=== PATIENT | male | born 1945 | race Caucasian/White ===

== ENCOUNTER 2017-01-01 21:14 | Inpatient (IN) | payer OTHER, MEDICARE ==
[2017-01-01] MEDS ORDERED: SODIUM CHLORIDE 0.9% 1000 ML INFUS.BAG IV STA (21:37)
--- NOTE | 2017-01-01 21:39 | PDOC ---
History of Present Illness <Fabian Sherman - Last Filed: 01/02/17 04:06> - General History Source: Patient Exam Limitations: No Limitations - History of Present Illness Initial Comments: 01/01/17 22:11 The patient is a 71 year old male with a significant past medical history of HTN , A-fib (now resolved, no longer taking coumadin) s/p kidney transplant who presents to the ED with complaints of fever since early this morning.Patient had a right sided kidney transplant on September 30 2016 at [facility]. He states he has had no complaints since the surgery. Patient reports a sudden onset of shaking last night. He reports he developed a subjective fever in the morning. Patient also reports urinary frequency since 2am this morning. He states he has to urinate every several minutes. Denies abdominal pain, nausea, vomiting, or diarrhea. Denies dysuria, hematuria , or hesitancy. Denies chest pain or shortness of breath. Denies any other symptoms. Kidney Transplant Doctor: Dr. Dominique Iyer (At [facility] ) PMD: Dr. Hamilton <Philip Courtney - Last Filed: 01/02/17 04:11> - General Chief Complaint: SIRS, Suspected/Possible Stated Complaint: SHAKING Time Seen by Provider: 01/01/17 21:37 Past History - Past Medical History Anemia: Yes Asthma: No Cancer: No Cardiac Disorders: Yes (2 stents, A.FLUTTER S/P ABLATION; CAD) CVA: No COPD: No CHF: Yes Dementia: No Diabetes: Yes Dialysis: No (hx of h.dialysis) GI Disorders: No Disorders: No HTN: Yes Hypercholesterolemia: Yes Liver Disease: No Suicide Attempt (Hx): No Seizures: No Thyroid Disease: No Other medical history: rt arm fistula - Surgical History Abdominal Surgery: Yes (hernia repair X2,colon resection) Appendectomy: No Cardiac Surgery: Yes (ablation, STENTS x 2, cath 10/08 no intervention) Cholecystectomy: No GI Surgery: Yes (colon sx 2 pre-ca tumors. 6 inches removed 05/2013) Lung Surgery: No Neurologic Surgery: No Orthopedic Surgery: Yes (R. grt toe amputation) - Immunization History Td Vaccination: Yes Immunization Up to Date: Yes (flu and pna 2013) - Psycho/Social/Smoking Cessation Hx Anxiety: No Suicidal Ideation: No Smoking Status: No Smoking History: Never smoked Years of Tobacco Use: 0 Have you smoked in the past 12 months: No Number of Cigarettes Smoked Daily: 0 If you are a former smoker, when did you quit?: 1996 Cigars Per Day: 0 Information on smoking cessation initiated: No 'Breaking Loose' booklet given: 03/05/15 Hx Alcohol Use: No Drug/Substance Use Hx: No Substance Use Type: None Hx Substance Use Treatment: No <Fabian Sherman - Last Filed: 01/02/17 04:06> <Philip Courtney - Last Filed: 01/02/17 04:11> - Past Medical History Allergies/Adverse Reactions: Allergies Allergy/AdvReac Type Severity Reaction Status Date / Time No Known Drug Allergies Allergy Verified 01/01/17 21:21 Home Medications: Ambulatory Orders Acyclovir [Zovirax -] 400 mg PO BID 01/01/17 Amlodipine Besylate [Norvasc -] 5 mg PO DAILY 01/01/17 Aspirin [ASA -] 81 mg PO DAILY 01/01/17 Atorvastatin Ca [Lipitor] 40 mg PO HS 01/01/17 Atovaquone [Mepron -] 750 mg PO BID 01/01/17 Calcium 600 + Vit D Softgel 600 mg PO DAILY 01/01/17 Cholecalciferol (Vitamin D3) [Vitamin D3 -] 1,000 unit PO DAILY 01/01/17 Docusate Sodium [Colace -] 100 mg PO DAILY 01/01/17 Fenofibric Acid [Trilipix -] 45 mg PO DAILY 01/01/17 Ferrous Sulfate 325 mg PO DAILY 01/01/17 Isosorbide Dinitrate [Isordil -] 10 mg PO DAILY 01/01/17 Losartan Potassium 25 mg PO DAILY 01/01/17 Metoprolol Succinate [Toprol Xl] 100 mg PO DAILY 01/01/17 Mycophenolate Mofetil [Cellcept] 500 mg PO DAILY 01/01/17 Prednisone 5 mg PO DAILY 01/01/17 Tacrolimus [Prograf] 1 tab PO DAILY 01/01/17 Review of Systems - Review of Systems Able to Perform ROS?: Yes Comments:: 01/01/17 22:12 GENERAL/CONSTITUTIONAL:+ fever, shakes No weakness. HEAD, EYES, EARS, NOSE AND THROAT: No change in vision. No ear pain or discharge. No sore throat. CARDIOVASCULAR: No chest pain or shortness of breath. RESPIRATORY: No cough, wheezing, or hemoptysis. GASTROINTESTINAL: No nausea, vomiting, diarrhea or constipation. GENITOURINARY: + frequency. No dysuria. MUSCULOSKELETAL: No joint or muscle swelling or pain. No neck or back pain. SKIN: No rash NEUROLOGIC: No headache, vertigo, loss of consciousness, or change in strength/ sensation. ENDOCRINE: No increased thirst. No abnormal weight change. HEMATOLOGIC/LYMPHATIC: No anemia, easy bleeding, or history of blood clots. ALLERGIC/IMMUNOLOGIC: No hives or skin allergy. All Other Systems: Reviewed and Negative <Philip Courtney - Last Filed: 01/02/17 04:11> *Physical Exam - Vital Signs Last Vital Signs Temp Pulse Resp BP Pulse Ox 103.1 F H 90 18 143/63 100 01/01/17 21:23 01/01/17 21:23 01/01/17 21:23 01/01/17 21:23 01/01/17 21:23 <Fabian Sherman - Last Filed: 01/02/17 04:06> - Vital Signs Last Vital Signs Temp Pulse Resp BP Pulse Ox 103.1 F H 90 18 143/63 100 01/01/17 21:23 01/01/17 21:23 01/01/17 21:23 01/01/17 21:23 01/01/17 21:23 - Physical Exam Comments: 01/01/17 22:12 GENERAL: + febrile, does not look ill. Awake, alert, and fully oriented, in no acute distress HEAD: No signs of trauma EYES: PERRLA, EOMI, sclera anicteric, conjunctiva clear ENT: Auricles normal inspection, hearing grossly normal, nares patent, oropharynx clear without exudates. Moist mucosa NECK: Normal ROM, supple, no lymphadenopathy, JVD, or masses LUNGS: Breath sounds equal, clear to auscultation bilaterally. No wheezes, and no crackles HEART: Regular rate and rhythm, normal S1 and S2, no murmurs, rubs or gallops ABDOMEN: Soft, nontender, normoactive bowel sounds. No guarding, no rebound. No masses EXTREMITIES: Normal range of motion, no edema. No clubbing or cyanosis. No cords, erythema, or tenderness NEUROLOGICAL: Normal speech SKIN: Warm, Dry, normal turgor, no rashes or lesions noted. <Philip Courtney - Last Filed: 01/02/17 04:11> Heart Score/ECG Review #1 01/02/17 00:19 Normal sinus rhythm Normal ECG Vent rate 91 bpm AL interval 152 ms Normal axes Reviewed and Interpreted by: Dr. Sherman <Philip Courtney - Last Filed: 01/02/17 04:11> ED Treatment Course - LABORATORY CBC & Chemistry Diagram: 01/01/17 22:00 01/01/17 22:00 - RADIOLOGY Radiology Studies Ordered: Category Date Time Status CHEST X-RAY PORTABLE* [RAD] Stat Radiology 01/01/17 21:37 Ordered <Fabian Sherman - Last Filed: 01/02/17 04:06> - LABORATORY CBC & Chemistry Diagram: 01/01/17 22:00 01/01/17 22:00 <Philip Courtney - Last Filed: 01/02/17 04:11> Medical Decision Making - Medical Decision Making 01/02/17 03:09 We are not able to get in contact with transplant team to pick out meds and antibiotics. Because time is of the essence,1 dose of zosan will be given and will wait for transplant team to pick meds and antibiotics 01/02/17 04:11 Multiple attempts were made over an hour to get in contact with the patients transplant team at [facility]. Case discussed with Dr. Iyer and she wants the patient to be admitted under his PMD. Dr Hamilton was paged and she was on vacation. Case discussed with Dr. Narvaez. Patient will be admitted through the hospitalist service. <Philip Courtney - Last Filed: 01/02/17 04:11> *DC/Admit/Observation/Transfer - Discharge Dispostion Admit: Yes - Attestations Physician Attestion: 01/01/17 21:39 I, Dr. Fabian Sherman, attest that this document has been prepared under my direction and personally reviewed by me in its entirety. I further attest, that it accurately reflects all work, treatment, procedures and medical decision -making performed by me. <Fabian Sherman - Last Filed: 01/02/17 04:06> - Attestations Scribe Attestion: 01/01/17 22:12 Documentation prepared by Philip Courtney, acting as diploma medical assistant for Fabian Sherman MD <Philip Courtney - Last Filed: 01/02/17 04:11> Diagnosis at time of Disposition: Acquired immunocompromised state, IDDM (insulin dependent diabetes mellitus), H /O heart artery stent, Kidney transplant recipient Sepsis Qualifiers: Sepsis type: sepsis due to unspecified organism Qualified Code(s): A41.9 - Sepsis, unspecified organism Hypertension Qualifiers: Hypertension type: essential hypertension Qualified Code(s): I10 - Essential ( primary) hypertension
[2017-01-01 22:11] LABS: MCH 28.6 pg (25.7-33.7); MCHC 32.2 g/dl (32.0-35.9); MEAN CELL VOLUME 88.9 fl (80-96); MEAN PLT VOLUME 11.1 fl (7.5-11.1); PLATELET COUNT 94 K/MM3 (134-434); WHITE BLOOD COUNT 7.4 K/mm3 (4.0-10.0)
[2017-01-01] MEDS ORDERED: ACETAMINOPHEN INJECTION 100 ML IVPB ONE (22:23)
[2017-01-01 22:26] LABS: INR 1.12 (0.82-1.09); PROTHROMBIN TIME (PATIENT) 12.3 SEC (9.98-11.88)
[2017-01-01] MEDS ORDERED: ACETAMINOPHEN 1000 MG/100 ML VIAL (NON FORMULARY) IVPB ONE (22:29)
[2017-01-01 22:31] LABS: VENOUS BLOOD GAS HCO3 21.2 meq/L (19-25); VENOUS PH 7.45 (7.32-7.42)
[2017-01-01 22:42] LABS: ALBUMIN 3.6 g/dl (3.4-5.0); ANION GAP 8 (8-16); CALCIUM 8.6 mg/dL (8.5-10.1); CO2 23 mmol/L (21-32); GLUCOSE,RANDOM 209 mg/dL (74-106)
[2017-01-01 22:48] LABS: ALK PHOS 48 U/L (45-117); BILIRUBIN,TOTAL 0.4 mg/dL (0.2-1.0); SGOT/AST 15 U/L (15-37); SGPT/ALT 21 U/L (12-78); TOT PROT 6.5 g/dl (6.4-8.2); TROPONIN I < 0.02 ng/ml (0.00-0.05)
[2017-01-01 23:08] LABS: ANISOCYTOSIS OCC; PLATELET ESTIMATE MOD DECREASED (NORMAL)
[2017-01-02 01:51] LABS: URINE APPEARANCE CLOUDY; URINE BILIRUBIN NEGATIVE (NEGATIVE); URINE COLOR LTYELLOW; URINE GLUCOSE (UA) NEGATIVE (NEGATIVE); URINE KETONE NEGATIVE (NEGATIVE); URINE NITRITE POSITIVE (NEGATIVE); URINE UROBILINOGEN NEGATIVE E.U./dl (0.2-1.0)
[2017-01-02 01:55] LABS: URINE BLOOD 3+ (NEGATIVE); URINE LEUK ESTERASE 2+ (NEGATIVE); URINE PROTEIN 2+ (NEGATIVE)
[2017-01-02 01:59] LABS: URINE BACTERIA MANY /hpf (NONE SEEN); URINE RBC 6 /hpf (0-3); URINE WBC 333 /hpf (3-5)
[2017-01-02] MEDS ORDERED: PIPERACILLIN/TAZOB 3.375 GM/50 ML PRE-DOCKED IV ONE (03:07)
[2017-01-02] MEDS ORDERED: PIPERACILLIN/TAZOB 3.375 GM 50 ML IVPB ONE (03:14)
[2017-01-02] MEDS ORDERED: ACETAMINOPHEN 1000 MG/100 ML VIAL (NON FORMULARY) IVPB ONE ×2 (03:16→06:12)
[2017-01-02] MEDS ORDERED: ACETAMINOPHEN INJECTION 100 ML IVPB ONE (03:26)
--- NOTE | 2017-01-02 05:10 | PN ---
Teaching Attending Note Name of Resident: Abel King ATTENDING PHYSICIAN STATEMENT I saw and evaluated the patient. Chart, imaging, and date reviewed. I reviewed the resident's note and discussed the case with the resident. I agree with the resident's findings and plan as documented with modifications in the attending note below. SUBJECTIVE: 71 year old male with a significant past medical history of HTN, A-fib (now resolved, no longer taking coumadin), CAD s/p 2 stents, ablation, s/p kidney transplant presented with complaints of fever and chills x 1 day. Patient had a right sided kidney transplant on September 30 2016 at [facility]. He states he has had no complaints since the surgery. Patient reports urinary frequency since 2am this morning. He states he has to urinate every several minutes, some discomfort with urination and reported subjective change in urine smell and color. Pt otherwise reports compliance with his home medications and and reports compliance with his follow up appointments at [facility]. Denies abdominal pain, nausea, vomiting, or diarrhea, hematuria, or hesitancy. Denies chest pain or shortness of breath. Pt admitted for Dr. Hamilton as she is not available for admission. Kidney Transplant Doctor: Dr. Dominique Iyer (At [facility] ) OBJECTIVE: Last Vital Signs Temp Pulse Resp BP Pulse Ox 100.4 F H 92 H 17 172/75 96 01/02/17 03:20 01/02/17 03:20 01/02/17 03:20 01/02/17 03:20 01/02/17 03:20 Tmax- 103F GENERAL: + febrile Awake, alert, and fully oriented, appears comfortable, nontoxic HEAD: No signs of trauma, moist oral mucosa, moist oral mucosa EYES: PERRLA, EOMI, sclera anicteric, conjunctiva clear NECK: supple, no lymphadenopathy or masses LUNGS: Breath sounds equal, clear to auscultation bilaterally. No wheezes, and no crackles HEART: S1 and S2, RRR, no murmurs ABDOMEN: Soft, nontender, normoactive bowel sounds. No guarding, no rebound. No masses, no CVA tenderness NEUROLOGICAL: Normal speech, no focal deficits noted SKIN: scar on anterior right flank after transplant, appears well healed Laboratory Results - last 24 hr 01/01/17 01/01/17 01/01/17 22:00 22:00 22:00 WBC 7.4 D RBC 3.92 L Hgb 11.2 L D Hct 34.9 L MCV 88.9 MCHC 32.2 RDW 16.0 H Plt Count 94 L D MPV 11.1 Neutrophils % 90.0 H Lymphocytes % 7.0 L D Band Neutrophils 3.0 D Platelet Estimate Mod decreased Anisocytosis Occ INR 1.12 PTT (Actin FS) 24.0 L D VBG pH POC VBG pCO2 POC VBG pO2 Mixed VBG HCO3 Sodium 135 L Potassium 4.4 Chloride 104 Carbon Dioxide 23 D Anion Gap 8 BUN 37 H Creatinine 2.0 H D Creat Clearance w eGFR 33.29 Random Glucose 209 H Lactic Acid Calcium 8.6 Total Bilirubin 0.4 AST 15 D ALT 21 D Alkaline Phosphatase 48 Creatine Kinase 45 Troponin I < 0.02 Total Protein 6.5 Albumin 3.6 D Urine Color Urine Appearance Urine pH Urine Protein Urine Glucose (UA) Urine Ketones Urine Blood Urine Nitrite Urine Bilirubin Urine Urobilinogen Ur Leukocyte Esterase Urine RBC Urine WBC Ur Epithelial Cells Urine Bacteria Blood Type Antibody Screen 01/01/17 01/01/17 01/01/17 22:00 22:00 22:19 WBC RBC Hgb Hct MCV MCHC RDW Plt Count MPV Neutrophils % Lymphocytes % Band Neutrophils Platelet Estimate Anisocytosis INR PTT (Actin FS) VBG pH 7.45 H POC VBG pCO2 31.1 L POC VBG pO2 99.8 H Mixed VBG HCO3 21.2 Sodium Potassium Chloride Carbon Dioxide Anion Gap BUN Creatinine Creat Clearance w eGFR Random Glucose Lactic Acid 1.8 Calcium Total Bilirubin AST ALT Alkaline Phosphatase Creatine Kinase Troponin I Total Protein Albumin Urine Color Urine Appearance Urine pH Urine Protein Urine Glucose (UA) Urine Ketones Urine Blood Urine Nitrite Urine Bilirubin Urine Urobilinogen Ur Leukocyte Esterase Urine RBC Urine WBC Ur Epithelial Cells Urine Bacteria Blood Type A POSITIVE Antibody Screen Negative 01/02/17 01:40 WBC RBC Hgb Hct MCV MCHC RDW Plt Count MPV Neutrophils % Lymphocytes % Band Neutrophils Platelet Estimate Anisocytosis INR PTT (Actin FS) VBG pH POC VBG pCO2 POC VBG pO2 Mixed VBG HCO3 Sodium Potassium Chloride Carbon Dioxide Anion Gap BUN Creatinine Creat Clearance w eGFR Random Glucose Lactic Acid Calcium Total Bilirubin AST ALT Alkaline Phosphatase Creatine Kinase Troponin I Total Protein Albumin Urine Color Ltyellow Urine Appearance Cloudy Urine pH 5.0 D Urine Protein 2+ H Urine Glucose (UA) Negative Urine Ketones Negative Urine Blood 3+ H Urine Nitrite Positive Urine Bilirubin Negative Urine Urobilinogen Negative Ur Leukocyte Esterase 2+ H Urine RBC 6 Urine WBC 333 Ur Epithelial Cells Rare Urine Bacteria Many Blood Type Antibody Screen CXR -reviewed, no acute pathology noted ASSESSMENT AND PLAN: #71yo male, s/p right renal transplant 09/2016 presenting with clinical picture consistent with UTI. +Fever, chills and pyuria on UA. Clinical improvement after zosyn administration. SHould r/o hydronephrosis and and also evaluate for possible post op fluid collection in right flank. Calculated GFR is about 32. -admit to med/surg -send blood cultures x2 -urine culture -renal U/S to evaluate for abscess and hydronephrosis -continue pip/tazo - dose at 2.25g q6hrs, adjusted for GFR -ID consult for medication approval -f/u with [place] transplant physician about any additional work up- contact listed above -avoid nephrotoxic medications -Tylenol PRN for fevers #S/p right renal transplant- compliant with medication and follow up -restart home antirejection medications -f/u with transplant physician- Dr. Dominique Iyer, for any possible changes in immunosuppresive medication regimen #Other chronic medical problems - -continue home medications- refer to resident note for details -DVT ppx- low risk for DVT -heparin 5000units sc q12 hrs #diet -diabetic, low sodium, heart healthy diet
--- NOTE | 2017-01-02 05:20 | HP ---
CHIEF COMPLAINT: fevers and shaking PCP: Dr. Hamilton; Kidney Transplant Doctor: Dr. Dominique Iyer (At [place]: [phone]) HISTORY OF PRESENT ILLNESS: 71 y/o M w/PMH of HTN, DM, s/p renal transplant (09/2016), CHF, A-fib (off A/C, s /p ablation), CAD w/2 stents, Anemia presents to ER with shaking and fevers. Pt states last night at 2am he woke up with shaking and the feeling of needing to urinate every 10 min but unable to empty bladder. He states the shaking lasted for approximately 1 hour. This morning he forced himself to completely void and felt feverish in the AM. He noticed the urine has been foul smelling. He was in the supermarket at approximately 2pm today and he began shaking again and his drove him to the hospital. He also c/o generalized weakness and decreased appetite today. Pt had a renal transplant on 09/30/16 and since then has stated he has been compliant with all meds and follow up and no issues have been noted at these appointments. He denies any dysuria, blood in urine, N/V, diarrhea, sick contacts, recent travel, CP, SOB, facial pressure, abdominal pain. ER course was notable for: (1) Zosyn, BCx, UCx, CXR, NS (2) (3) Recent Travel: denies PAST MEDICAL HISTORY:HTN, IDDM, s/p renal transplant (09/2016), CHF, A-fib (off A /C, s/p ablation), CAD w/2 stents, Anemia PAST SURGICAL HISTORY: s/p 2 stents, renal transplant 09/2016, cardiac ablation, colon resection, R great toe amputation. Social History: Smoking: quit in 1987 Alcohol:denies Drugs: denies Family History: denies family history Allergies No Known Drug Allergies Allergy (Verified 01/01/17 21:21) HOME MEDICATIONS: Home Medications Medication Instructions Recorded Acyclovir [Zovirax -] 400 mg PO BID 01/01/17 Amlodipine Besylate [Norvasc -] 5 mg PO DAILY 01/01/17 Aspirin [ASA -] 81 mg PO DAILY 01/01/17 Atorvastatin Ca [Lipitor] 40 mg PO HS 01/01/17 Atovaquone [Mepron -] 750 mg PO BID 01/01/17 Calcium 600 + Vit D Softgel 600 mg PO DAILY 01/01/17 Cholecalciferol (Vitamin D3) 1,000 unit PO DAILY 01/01/17 [Vitamin D3 -] Docusate Sodium [Colace -] 100 mg PO DAILY 01/01/17 Fenofibric Acid [Trilipix -] 45 mg PO DAILY 01/01/17 Ferrous Sulfate 325 mg PO DAILY 01/01/17 Isosorbide Dinitrate [Isordil -] 10 mg PO DAILY 01/01/17 Losartan Potassium 25 mg PO DAILY 01/01/17 Metoprolol Succinate [Toprol Xl] 100 mg PO DAILY 01/01/17 Mycophenolate Mofetil [Cellcept] 500 mg PO DAILY 01/01/17 Prednisone 5 mg PO DAILY 01/01/17 Tacrolimus [Prograf] 1 tab PO DAILY 01/01/17 REVIEW OF SYSTEMS CONSTITUTIONAL: +fever, generalized weakness, loss of appetite. Absent: chills, diaphoresis, weight change HEENT: Absent: rhinorrhea, visual changes CARDIOVASCULAR: Absent: chest pain, lightheadedness, peripheral edema RESPIRATORY: Absent: cough, shortness of breath GASTROINTESTINAL: Absent: abdominal pain, nausea, vomiting, diarrhea, hematochezia GENITOURINARY: +frequency Absent: dysuria, hematuria, flank pain MUSCULOSKELETAL: Absent: myalgia, arthralgia SKIN: Absent: rash NEUROLOGIC: Absent: headache, focal weakness PHYSICAL EXAMINATION Vital Signs - 24 hr 01/01/17 01/01/17 01/02/17 21:23 23:30 00:15 Temperature 103.1 F H 101.2 F H 99.1 F Pulse Rate 90 Pulse Rate [ 88 Radial] Respiratory 18 17 Rate Blood Pressure 143/63 Blood Pressure 134/58 [Left Arm] O2 Sat by Pulse 100 97 Oximetry (%) 01/02/17 03:20 Temperature 100.4 F H Pulse Rate Pulse Rate [ 92 H Radial] Respiratory 17 Rate Blood Pressure Blood Pressure 172/75 [Left Arm] O2 Sat by Pulse 96 Oximetry (%) GENERAL: Awake, alert, and fully oriented, in no acute distress. HEAD: Normal with no signs of trauma. EYES: extraocular movements intact, sclera anicteric, conjunctiva clear. No lid lag. EARS, NOSE, THROAT: Ears normal, nares patent, oropharynx clear without exudates. NECK: Normal range of motion, supple without lymphadenopathy LUNGS: +decreased breath sounds at R base. No wheezes, and no crackles. No accessory muscle use. HEART: Regular rate and rhythm, normal S1 and S2 ABDOMEN: +RLQ surigcal scar, well healed; Soft, nontender, not distended, normoactive bowel sounds, no guarding, no rebound, no masses. No hepatomegaly or splenomegaly. MUSCULOSKELETAL: No CVA tenderness. LOWER EXTREMITIES: 2+ pulses, warm, well-perfused. No calf tenderness. No peripheral edema. NEUROLOGICAL: Normal speech. Gait not observed. PSYCHIATRIC: Cooperative. Good eye contact. Appropriate mood and affect. SKIN: Warm, dry, no rashes or lesions noted. Laboratory Results - last 24 hr 01/01/17 01/01/17 01/01/17 22:00 22:00 22:00 WBC 7.4 D RBC 3.92 L Hgb 11.2 L D Hct 34.9 L MCV 88.9 MCHC 32.2 RDW 16.0 H Plt Count 94 L D MPV 11.1 Neutrophils % 90.0 H Lymphocytes % 7.0 L D Band Neutrophils 3.0 D Platelet Estimate Mod decreased Anisocytosis Occ INR 1.12 PTT (Actin FS) 24.0 L D VBG pH POC VBG pCO2 POC VBG pO2 Mixed VBG HCO3 Sodium 135 L Potassium 4.4 Chloride 104 Carbon Dioxide 23 D Anion Gap 8 BUN 37 H Creatinine 2.0 H D Creat Clearance w eGFR 33.29 Random Glucose 209 H Lactic Acid Calcium 8.6 Total Bilirubin 0.4 AST 15 D ALT 21 D Alkaline Phosphatase 48 Creatine Kinase 45 Troponin I < 0.02 Total Protein 6.5 Albumin 3.6 D Urine Color Urine Appearance Urine pH Urine Protein Urine Glucose (UA) Urine Ketones Urine Blood Urine Nitrite Urine Bilirubin Urine Urobilinogen Ur Leukocyte Esterase Urine RBC Urine WBC Ur Epithelial Cells Urine Bacteria Blood Type Antibody Screen 01/01/17 01/01/17 01/01/17 22:00 22:00 22:19 WBC RBC Hgb Hct MCV MCHC RDW Plt Count MPV Neutrophils % Lymphocytes % Band Neutrophils Platelet Estimate Anisocytosis INR PTT (Actin FS) VBG pH 7.45 H POC VBG pCO2 31.1 L POC VBG pO2 99.8 H Mixed VBG HCO3 21.2 Sodium Potassium Chloride Carbon Dioxide Anion Gap BUN Creatinine Creat Clearance w eGFR Random Glucose Lactic Acid 1.8 Calcium Total Bilirubin AST ALT Alkaline Phosphatase Creatine Kinase Troponin I Total Protein Albumin Urine Color Urine Appearance Urine pH Urine Protein Urine Glucose (UA) Urine Ketones Urine Blood Urine Nitrite Urine Bilirubin Urine Urobilinogen Ur Leukocyte Esterase Urine RBC Urine WBC Ur Epithelial Cells Urine Bacteria Blood Type A POSITIVE Antibody Screen Negative 01/02/17 01:40 WBC RBC Hgb Hct MCV MCHC RDW Plt Count MPV Neutrophils % Lymphocytes % Band Neutrophils Platelet Estimate Anisocytosis INR PTT (Actin FS) VBG pH POC VBG pCO2 POC VBG pO2 Mixed VBG HCO3 Sodium Potassium Chloride Carbon Dioxide Anion Gap BUN Creatinine Creat Clearance w eGFR Random Glucose Lactic Acid Calcium Total Bilirubin AST ALT Alkaline Phosphatase Creatine Kinase Troponin I Total Protein Albumin Urine Color Ltyellow Urine Appearance Cloudy Urine pH 5.0 D Urine Protein 2+ H Urine Glucose (UA) Negative Urine Ketones Negative Urine Blood 3+ H Urine Nitrite Positive Urine Bilirubin Negative Urine Urobilinogen Negative Ur Leukocyte Esterase 2+ H Urine RBC 6 Urine WBC 333 Ur Epithelial Cells Rare Urine Bacteria Many Blood Type Antibody Screen Imaging: CXR: R angle blunted, no infiltrates noted, pending official report Active Medications Acetaminophen (Tylenol -) 650 mg PO Q6H PRN PRN Reason: FEVER OR PAIN Acyclovir (Zovirax -) 400 mg PO BID [facility] Amlodipine Besylate (Norvasc -) 5 mg PO DAILY [facility] Aspirin (Asa -) 81 mg PO DAILY [facility] Atorvastatin Calcium (Lipitor -) 40 mg PO HS [facility] Fenofibric Acid (Trilipix -) 45 mg PO DAILY [facility] Piperacillin Sod/Tazobactam (Sod 2.25 gm/ Dextrose) 50 mls @ 100 mls/hr IVPB ONCE ONE PRN Reason: Protocol Stop: 01/02/17 09:29 Sodium Chloride (Normal Saline -) 1,000 mls @ 100 mls/hr IV ASDIR [facility] Isosorbide Dinitrate (Isordil -) 10 mg PO DAILY [facility] Metoprolol Succinate (Toprol Xl -) 100 mg PO DAILY [facility] Mycophenolate Mofetil (Cellcept -) 500 mg PO DAILY [facility] Non-Formulary Medication (Atovaquone) 750 mg PO BID [facility] Non-Formulary Medication (Ferrous Sulfate [Ferrous Sulfate]) 325 mg PO DAILY [facility] Non-Formulary Medication (Tacrolimus [Prograf]) 1 tab PO DAILY [facility] Prednisone (Deltasone -) 5 mg PO DAILY [facility] ASSESSMENT/PLAN: 71 y/o M w/PMH of HTN, IDDM, s/p renal transplant (09/2016), CHF, A-fib (off A/C , s/p ablation), CAD w/2 stents, Anemia presents to ER with shaking and fevers. Found to have UTI as per UA. -Complicated UTI / pyelonephritis -ER team contacted Dr. Dominique Iyer (At [facility]: ) who is pt's transplant doctor who recommends single abx coverage with zosyn -Dr. Iyer also recommends trying to bring Cr down to 1.7 - 1.8 -Will dose zosyn according to CrCl at 2.25 g q6h; if pseudomonas is causative organism will need to increase dose -Recontact Dr. Iyer to check for any changes in management -NS @ 100 ml/hr -tylenol 650 mg po q6h prn for fevers -ID consulted (Dr. Kim) -trend lactic acid -f/u BCx, UCx -Renal U/S to r/o abscess -s/p Renal Transplant -c/w Acyclovir 400 mg po bid, mycophenolate mofetil 500 mg po qd, tacrolimus 1 tab po qd, prednisone 5 mg po qd, atovaquone 750 mg po bid -CAD -c/w asa 81 mg po qd, fenofibric acid 45 mg po qd, atorvastatin 40 mg po qhs -HTN -c/w toprol xl 100 mg po qd, amlodipine 5 mg po qd -held losartan at this time while we try to bring back Cr to 1.7 - 1.8 range -if losartan is restarted, include directions to hold if sBP is less than 120. -Anemia -Hgb 11.2, at baseline -c/w ferrous sulfate 325 mg po qd -DVT ppx -Heparin 5000 units q12h -FEN -NS @ 100 ml/hr -Pseudohyponatremia - corrected 137; monitor lytes -Diabetic/Renal diet -Dispo: -Admit to M/S Visit type - Emergency Visit Emergency Visit: Yes ED Registration Date: 01/02/17 Care time: The patient presented to the Emergency Department on the above date and was hospitalized for further evaluation of their emergent condition. - New Patient This patient is new to me today: Yes Date on this admission: 01/02/17 - Critical Care Critical Care patient: No
[2017-01-02] MEDS ORDERED: ACETAMINOPHEN 325 MG TABLET (FP) PO PRN (05:36)
[2017-01-02] MEDS ORDERED: PIPERACILLIN/TAZOB 2.25 GM 50 ML IVPB ONE (09:00)
[2017-01-02 09:04] VITALS: BMI 31.0
[2017-01-02 09:34] LABS: MCH 29.2 pg (25.7-33.7); MCHC 32.7 g/dl (32.0-35.9); MEAN CELL VOLUME 89.4 fl (80-96); PLATELET COUNT 59 K/MM3 (134-434); RDW 15.8 % (11.9-15.9); WHITE BLOOD COUNT 6.2 K/mm3 (4.0-10.0)
[2017-01-02 09:40] LABS: ALBUMIN 2.8 g/dl (3.4-5.0); ANION GAP 10 (8-16); BILIRUBIN,TOTAL 1.1 mg/dL (0.2-1.0); CALCIUM 8.2 mg/dL (8.5-10.1); CO2 20 mmol/L (21-32); CREATININE 2.2 mg/dL (0.7-1.3); GLUCOSE,RANDOM 100 mg/dL (74-106); SGOT/AST 17 U/L (15-37); SGPT/ALT 18 U/L (12-78); TOT PROT 5.2 g/dl (6.4-8.2)
[2017-01-02 09:41] LABS: ALK PHOS 53 U/L (45-117)
[2017-01-02] MEDS ORDERED: DOCUSATE SODIUM 100 MG CAPSULE (FP) PO SCH (10:00)
[2017-01-02] MEDS: TACROLIMUS ANHYDROUS 1 MG CAPSULE (NF) PO SCH ×2 (10:03→11:17)
[2017-01-02] MEDS: MYCOPHENOLATE MOFETIL 250 MG CAPSULE PO SCH ×2 (10:03→11:16)
[2017-01-02] MEDS: ACYCLOVIR 400 MG TABLET PO SCH ×3 (10:04→21:56)
[2017-01-02] MEDS: predniSONE 5 MG TABLET (UD) PO SCH ×2 (10:04→11:16)
[2017-01-02] MEDS: amLODIPine BESYLATE 5 MG TABLET (FP) PO SCH (10:04)
[2017-01-02] MEDS: ISOSORBIDE DINITRATE 5 MG TABLET PO SCH ×2 (10:05→13:54)
[2017-01-02] MEDS: METOPROLOL SUCCINATE 100 MG TAB.SR.24H (FP) PO SCH (10:05)
[2017-01-02] MEDS: FERROUS SO4 325 MG TABLET (FP) PO SCH ×2 (10:06→11:16)
[2017-01-02] MEDS: ASPIRIN 81 MG CHEWABLE TABLETS PO SCH ×2 (10:06→11:17)
[2017-01-02 11:09] LABS: HYPOCHROMIA FEW; METAMYELOCYTE 1 % (0-2); PLATELET ESTIMATE DECREASED (NORMAL)
[2017-01-02] MEDS: ATOVAQUONE 750 MG/5 ML (UNIT-DOSE PACKAGING) PO SCH ×2 (11:17→21:57)
[2017-01-02] MEDS: HEPARIN NA (PORCINE) 5,000 UNITS/ML 1ML VIAL SQ SCH ×2 (11:17→21:54)
--- NOTE | 2017-01-02 13:10 | PN ---
Physical Exam: SUBJECTIVE: Patient seen and examined OBJECTIVE: overall states that he is feeling better , no nausea , no vomiting. No pain now Vital Signs Period Temp Pulse Resp BP Sys/Martin Pulse Ox Last 24 Hr 100.1 F-101.9 F 75-91 18-20 123-145/61-67 96 GENERAL: The patient is awake, alert, and fully oriented, in no acute distress. HEAD: Normal with no signs of trauma. EYES: PERRL, extraocular movements intact, sclera anicteric, conjunctiva clear. No ptosis. ENT: Ears normal, nares patent, oropharynx clear without exudates, moist mucous membranes. NECK: Trachea midline, full range of motion, supple. LUNGS: Breath sounds equal, clear to auscultation bilaterally, no wheezes, no crackles, no accessory muscle use. HEART: Regular rate and rhythm, S1, S2 without murmur, rub or gallop. ABDOMEN: Soft, nontender, nondistended, normoactive bowel sounds, no guarding, no rebound, no hepatosplenomegaly, no masses. EXTREMITIES: 2+ pulses, warm, well-perfused, no edema. NEUROLOGICAL: Cranial nerves II through XII grossly intact. Normal speech, gait not observed. PSYCH: Normal mood, normal affect. SKIN: Warm, dry, normal turgor, no rashes or lesions noted CBC, BMP 01/02/17 07:35 01/02/17 07:35 Generic Name Dose Route Start Last Admin Trade Name Freq PRN Reason Stop Dose Admin Acetaminophen 650 mg 01/02/17 05:36 01/02/17 10:22 Tylenol - PO 650 mg Q6H PRN Administration FEVER OR PAIN Acyclovir 400 mg 01/02/17 10:00 Zovirax - PO BID JESSICA Amlodipine Besylate 5 mg 01/02/17 10:00 01/02/17 10:04 Norvasc - PO Not Given DAILY JESSICA Aspirin 81 mg 01/02/17 10:00 01/02/17 11:17 Asa - PO 81 mg DAILY JESSICA Administration Atorvastatin Calcium 40 mg 01/02/17 22:00 Lipitor - PO HS JESSICA Atovaquone 750 mg 01/02/17 10:00 01/02/17 11:17 Mepron - PO 750 mg BID JESSICA Administration Fenofibric Acid 45 mg 01/02/17 10:00 Trilipix - PO DAILY JESSICA Ferrous Sulfate 325 mg 01/02/17 10:00 01/02/17 11:16 Feosol - PO 325 mg DAILY JESSICA Administration Heparin Sodium (Porcine) 5,000 unit 01/02/17 10:00 01/02/17 11:17 Heparin - SQ 5,000 unit BID JESSICA Administration Sodium Chloride 1,000 mls @ 100 mls/hr 01/02/17 05:45 Normal Saline - IV ASDIR [facility] Isosorbide Dinitrate 10 mg 01/02/17 10:00 Isordil - PO DAILY [facility] Metoprolol Succinate 100 mg 01/02/17 10:00 01/02/17 10:05 Toprol Xl - PO Not Given DAILY [facility] Mycophenolate Mofetil 500 mg 01/02/17 10:00 01/02/17 11:16 Cellcept - PO 500 mg DAILY [facility] Administration Non-Formulary Medication 600 mg 01/03/17 10:00 Calcium 600 + Vit D Softgel PO DAILY [facility] Non-Formulary Medication 12 units 01/02/17 22:00 Insulin (Levemir) [Levemir Flexpen -] SQ HS [facility] Non-Formulary Medication 16 units 01/02/17 16:30 Insulin Lispro [Humalog Kwikpen U-100] SCJ ACHS JESSICA Prednisone 5 mg 01/02/17 10:00 01/02/17 11:16 Deltasone - PO 5 mg DAILY [facility] Administration Tacrolimus 1 mg 01/02/17 10:00 01/02/17 11:17 Prograf (Non-Formulary) PO 1 mg DAILY JESSICA Administration ASSESSMENT/PLAN:
--- NOTE | 2017-01-02 13:25 | PN ---
Physical Exam: SUBJECTIVE: Patient seen and examined OBJECTIVE: reports nausea, chills , generalized body ache and pain , rigors, disuria Vital Signs Period Temp Pulse Resp BP Sys/Martin Pulse Ox Last 24 Hr 100.1 F-101.9 F 75-91 18-20 123-145/61-67 96 GENERAL: + febrile Awake, alert, and fully oriented, appears comfortable, nontoxic HEAD: No signs of trauma, moist oral mucosa, moist oral mucosa EYES: PERRLA, EOMI, sclera anicteric, conjunctiva clear NECK: supple, no lymphadenopathy or masses LUNGS: Breath sounds equal, clear to auscultation bilaterally. No wheezes, and no crackles HEART: S1 and S2, RRR, no murmurs ABDOMEN: Soft, nontender, normoactive bowel sounds. No guarding, no rebound. No masses, mild b/l CVA tenderness NEUROLOGICAL: Normal speech, no focal deficits noted SKIN: scar on anterior right flank after transplant, appears well healed Laboratory Results - last 24 hr 01/02/17 01/02/17 01/02/17 07:02 07:35 07:35 WBC 6.2 RBC 3.73 L Hgb 10.9 L Hct 33.4 L MCV 89.4 MCHC 32.7 RDW 15.8 Plt Count 59 L D MPV 11.0 Neutrophils % 84.0 H Lymphocytes % 2.0 L D Monocytes % 3.0 L Eosinophils % 1.0 Band Neutrophils 9.0 D Metamyelocytes 1 Platelet Estimate Decreased Platelet Comment No clumping noted Hypochromic-Microcytic Few Sodium 139 Potassium 4.3 Chloride 109 H Carbon Dioxide 20 L Anion Gap 10 BUN 35 H Creatinine 2.2 H Creat Clearance w eGFR 29.83 POC Glucometer 85 Random Glucose 100 D Calcium 8.2 L Total Bilirubin 1.1 H D AST 17 ALT 18 Alkaline Phosphatase 53 Total Protein 5.2 L Albumin 2.8 L D 01/02/17 12:01 WBC RBC Hgb Hct MCV MCHC RDW Plt Count MPV Neutrophils % Lymphocytes % Monocytes % Eosinophils % Band Neutrophils Metamyelocytes Platelet Estimate Platelet Comment Hypochromic-Microcytic Sodium Potassium Chloride Carbon Dioxide Anion Gap BUN Creatinine Creat Clearance w eGFR POC Glucometer 104 Random Glucose Calcium Total Bilirubin AST ALT Alkaline Phosphatase Total Protein Albumin Active Medications Generic Name Dose Route Start Last Admin Trade Name Freq PRN Reason Stop Dose Admin Acetaminophen 650 mg 01/02/17 05:36 01/02/17 10:22 Tylenol - PO 650 mg Q6H PRN Administration FEVER OR PAIN Acyclovir 400 mg 01/02/17 10:00 Zovirax - PO BID [facility] Amlodipine Besylate 5 mg 01/02/17 10:00 01/02/17 10:04 Norvasc - PO Not Given DAILY [facility] Aspirin 81 mg 01/02/17 10:00 01/02/17 11:17 Asa - PO 81 mg DAILY [facility] Administration Atorvastatin Calcium 40 mg 01/02/17 22:00 Lipitor - PO HS [facility] Atovaquone 750 mg 01/02/17 10:00 01/02/17 11:17 Mepron - PO 750 mg BID [facility] Administration Calcium Carbonate/Cholecalciferol 1 tab 01/03/17 10:00 Os-Kelvin 500+D - PO DAILY [facility] Fenofibric Acid 45 mg 01/02/17 10:00 Trilipix - PO DAILY [facility] Ferrous Sulfate 325 mg 01/02/17 10:00 01/02/17 11:16 Feosol - PO 325 mg DAILY [facility] Administration Heparin Sodium (Porcine) 5,000 unit 01/02/17 10:00 01/02/17 11:17 Heparin - SQ 5,000 unit BID [facility] Administration Sodium Chloride 1,000 mls @ 100 mls/hr 01/02/17 05:45 Normal Saline - IV ASDIR [facility] Sodium Chloride 1,000 mls @ 100 mls/hr 01/02/17 13:30 1/2 Normal Saline IV ASDIR [facility] Insulin Detemir 12 units 01/02/17 22:00 Levemir Vial SQ HS [facility] Isosorbide Dinitrate 10 mg 01/02/17 10:00 Isordil - PO DAILY [facility] Metoprolol Succinate 100 mg 01/02/17 10:00 01/02/17 10:05 Toprol Xl - PO Not Given DAILY [facility] Mycophenolate Mofetil 500 mg 01/02/17 10:00 01/02/17 11:16 Cellcept - PO 500 mg DAILY [facility] Administration Non-Formulary Medication 600 mg 01/03/17 10:00 Calcium 600 + Vit D Softgel PO DAILY [facility] Non-Formulary Medication 16 units 01/02/17 16:30 Insulin Lispro [Humalog Kwikpen U-100] TXJ ACHS JESSICA Prednisone 5 mg 01/02/17 10:00 01/02/17 11:16 Deltasone - PO 5 mg DAILY JESSICA Administration Tacrolimus 1 mg 01/02/17 10:00 01/02/17 11:17 Prograf (Non-Formulary) PO 1 mg DAILY JESSICA Administration ASSESSMENT/PLAN: 1. Pyelonephritis /complicated UTI in a patient s/p renal transplant and immunosupressed state. Sepsis. -worsening Cr, persistent fever. Cultures are still pending . On Zosyn IV. High risk of acute cellular rejection. - US renal stat for evaluation of possible ATN, hydronephrosis etc. - continue IVAB and follow cultures - will possibly need IV Vanco , will discuss with ID - IVF and monitor output - call placed to Dr Iyer to discuss the plan of acre and possible need for transfer. 2. DM - c/w insulin ss and basal insulin 3. Trombocytopenia- likely reactive to sepsis, no bleeding now. - monitor platelets closely Awaiting call back from Dr Iyer -ER team contacted Dr. Dominique Iyer (At [place]: ) who is pt's transplant doctor who recommends single abx coverage with zosyn -Dr. Iyer also recommends trying to bring Cr down to 1.7 - 1.8 -Will dose zosyn according to CrCl at 2.25 g q6h; if pseudomonas is causative organism will need to increase dose -Recontact Dr. Iyer to check for any changes in management -NS @ 100 ml/hr -tylenol 650 mg po q6h prn for fevers -ID consulted (Dr. Kim) -trend lactic acid -f/u BCx, UCx -Renal U/S to r/o abscess -s/p Renal Transplant -c/w Acyclovir 400 mg po bid, mycophenolate mofetil 500 mg po qd, tacrolimus 1 tab po qd, prednisone 5 mg po qd, atovaquone 750 mg po bid -CAD -c/w asa 81 mg po qd, fenofibric acid 45 mg po qd, atorvastatin 40 mg po qhs -HTN -c/w toprol xl 100 mg po qd, amlodipine 5 mg po qd -held losartan at this time while we try to bring back Cr to 1.7 - 1.8 range -if losartan is restarted, include directions to hold if sBP is less than 120. -Anemia -Hgb 11.2, at baseline -c/w ferrous sulfate 325 mg po qd -DVT ppx -Heparin 5000 units q12h -FEN -NS @ 100 ml/hr -Pseudohyponatremia - corrected 137; monitor lytes -Diabetic/Renal diet -Dispo: -Admit to M/S Visit type - Emergency Visit Emergency Visit: Yes ED Registration Date: 01/02/17 Care time: The patient presented to the Emergency Department on the above date and was hospitalized for further evaluation of their emergent condition. - New Patient This patient is new to me today: Yes Date on this admission: 01/02/17 - Critical Care Critical Care patient: No - Discharge Referral Referred to [facility] Med P.C.: No
[2017-01-02] MEDS: SODIUM CHLORIDE 0.45% 1,000 ML IV SCH (13:52)
[2017-01-02] MEDS: FENOFIBRIC ACID 45 MG CAP PO SCH (13:54)
--- NOTE | 2017-01-02 13:54 | PN ---
Progress Note (short form) - Note Progress Note: ID consult dictated gram negative sepsis secondary to UTI recent renal transplant 09/30/16 [facility] thrombocytopenia?secondary to sepsis check dic parameters renal sonogram pending d/w Dr Oliveira-she is just spoke to transplant service and is awiating call back too arrange transfer of patient switch to meropenem to cover for possible esbl organisms in this immunocompromised patient
--- NOTE | 2017-01-02 15:11 | CONS ---
DATE OF CONSULTATION: 01/02/2017 The patient is a 71-year-old man. He is status post recent kidney transplant on September 30 at [facility]. He has been doing well status post his transplant until Tuesday, when he developed dysuria, increasing urinary frequency. He had shaking chills on Tuesday and trouble urinating. His wanted him to come to the hospital; he delayed until Tuesday night, when he came Tuesday night to the emergency room. In the ER, he was noted to have fever of 103. They ultimately contacted his Transplant Team. He was given Zosyn and he was admitted to the Hospitalist Service and I am asked to see him for antibiotic recommendations. The patient is currently resting comfortably. He continues to have fever, but states he feels improved and has stopped shaking. PAST MEDICAL HISTORY: Extensive; it is notable for a history of asthma, coronary artery disease. He has [address] He has a history of CHF, diabetes, history of dialysis in the past, hypertension, hypercholesterolemia, end-stage renal disease. He has a right arm fistula. He is status post a recent kidney transplant. SURGICAL HISTORY: Hernia repair x2 with colon resection. He has had a right great toe amputation. He has no known drug allergies. MEDICATIONS AN OUTPATIENT: Acyclovir, amlodipine, aspirin, atorvastatin, atovaquone, calcium with vitamin D, cholecalciferol, Colace, fenofibrate, ferrous sulfate, Isordil, losartan, metoprolol, mycophenolate, prednisone, and tacrolimus. FAMILY HISTORY: Noncontributory. SOCIAL HISTORY: He is ; he lives with his at home. He denies any recent travel. He denies any cough, shortness of breath, nausea, vomiting, or diarrhea. LABORATORIES: White count yesterday of 7.4; this morning, 6.2. Hemoglobin is 10.9, platelets are 59,000; they were 94 yesterday. He has 9% bands. His INR was 1.1 yesterday. BUN 35, creatinine 2.2. His LFTs are notable for a bilirubin of 1.1; otherwise normal. Urinalysis has 2+ leukocyte esterase and 333 white cells. He was HIV-screened in 2014 and was HIV-negative. Blood cultures are notable for 1 of 4 bottles with a gram-negative bacillus in an anaerobic bottle. Urine culture is pending. Renal sonogram was just done and is pending. SUMMARY: This is a gram-negative sepsis secondary to UTI in a patient with renal transplant, on immunosuppressive agents, acute kidney injury. It is unclear what his baseline renal function is, but his creatinine has worsened from 2 to 2.2 overnight. Thrombocytopenia; this was noted in 2015 here at [facility], but appears to be worsening and is probably secondary to sepsis. We will check DIC parameters. His INR was okay last night. Renal sonogram is pending. I would switch him to meropenem to cover for possible pseudomonas as well as ESBL organisms in this immunocompromised patient. Discussed with Dr. Oliveira. She has just contacted the Transplant Service to arrange transfer and is waiting for a call back. JEAN MARIE MCDONOUGH M.D. [id number]
[2017-01-02 15:44] LABS: INR 1.51 (0.82-1.09); PROTHROMBIN TIME (PATIENT) 16.8 SEC (9.98-11.88)
[2017-01-02] MEDS: MEROPENEM 1 GM in DEXTROSE 5%-WATER - 100 ML IVPB SCH (16:06)
[2017-01-02] MEDS: INSULIN (NOVOLOG) ASPART 100 UNITS/ML 10ML VIAL SQ SCH ×2 (17:18→21:54)
--- NOTE | 2017-01-02 21:03 | EKG ---
Test Reason : Blood Pressure : / mmHG Vent. Rate : 091 BPM Atrial Rate : 091 BPM P-R Int : 152 ms QRS Dur : 092 ms QT Int : 324 ms P-R-T Axes : 050 029 051 degrees QTc Int : 398 ms POOR DATA QUALITY, INTERPRETATION MAY BE ADVERSELY AFFECTED NORMAL SINUS RHYTHM ST ELEVATION, CONSIDER EARLY REPOLARIZATION, PERICARDITIS, OR INJURY MI DEPRESSION WHEN COMPARED WITH ECG OF 05-MAR-2015 09:19, NO SIGNIFICANT CHANGE WAS FOUND Confirmed by ANAHI FONTAINE MD ([id number]) on 01/02/2017 9:03:01 PM Referred By: Confirmed By:ANAHI FONTAINE MD
[2017-01-02] MEDS ORDERED: INSULIN DETEMIR SQ SCH (22:00)
[2017-01-02] MEDS ORDERED: INSULIN DETEMIR 100 UNITS/ML MDV SQ SCH (22:00)
[2017-01-02] MEDS ORDERED: ATORVASTATIN CA 40 MG TABLET (FP) PO SCH (22:00)
[2017-01-02] MEDS ORDERED: [UNRECOGNIZED DRUG - OTHER] SQ SCH (22:00)
[2017-01-03] MEDS: MEROPENEM 1 GM in DEXTROSE 5%-WATER - 100 ML IVPB SCH ×2 (01:12→13:21)
[2017-01-03] MEDS: SODIUM CHLORIDE 1,000 ML IV SCH ×3 (05:45→06:03)
[2017-01-03] MEDS: INSULIN (NOVOLOG) ASPART 100 UNITS/ML 10ML VIAL SQ SCH ×3 (06:03→17:37)
[2017-01-03] MEDS: SODIUM CHLORIDE 0.45% 1,000 ML IV SCH (07:27)
[2017-01-03 08:19] LABS: MCH 29.6 pg (25.7-33.7); MCHC 33.1 g/dl (32.0-35.9); MEAN CELL VOLUME 89.5 fl (80-96); MEAN PLT VOLUME 11.7 fl (7.5-11.1); PLATELET COUNT 41 K/MM3 (134-434); RDW 16.7 % (11.9-15.9); WHITE BLOOD COUNT 10.9 K/mm3 (4.0-10.0)
[2017-01-03 08:55] LABS: CALCIUM 7.1 mg/dL (8.5-10.1)
[2017-01-03] MEDS ORDERED: PT OWN MED DRAWER 7, Y5N ONE ×2 (08:57→10:10)
[2017-01-03 08:58] LABS: ANION GAP 11 (8-16); CO2 19 mmol/L (21-32); CREATININE 2.6 mg/dL (0.7-1.3); GLUCOSE,RANDOM 118 mg/dL (74-106)
--- NOTE | 2017-01-03 08:59 | PN ---
Progress Note, Physician Chief Complaint: ID Follow up for this 71 year old male wit recent renal transplant admitted with sepsis and GNB bacteremia. Presently on Meropenem Making urine AFebrile - Current Medication List Current Medications: Active Medications Acetaminophen (Tylenol -) 650 mg PO Q6H PRN PRN Reason: FEVER OR PAIN Last Admin: 01/02/17 10:22 Dose: 650 mg Acyclovir (Zovirax -) 400 mg PO BID [facility] Last Admin: 01/02/17 21:56 Dose: 400 mg Amlodipine Besylate (Norvasc -) 5 mg PO DAILY JESSICA Last Admin: 01/02/17 10:04 Dose: Not Given Aspirin (Asa -) 81 mg PO DAILY [facility] Last Admin: 01/02/17 11:17 Dose: 81 mg Atorvastatin Calcium (Lipitor -) 40 mg PO HS [facility] Last Admin: 01/02/17 21:56 Dose: 40 mg Atovaquone (Mepron -) 750 mg PO BID [facility] Last Admin: 01/02/17 21:57 Dose: 750 mg Calcium Carbonate/Cholecalciferol (Os-Kelvin 500+D -) 1 tab PO DAILY [facility] Fenofibric Acid (Trilipix -) 45 mg PO DAILY [facility] Last Admin: 01/02/17 13:54 Dose: 45 mg Ferrous Sulfate (Feosol -) 325 mg PO DAILY [facility] Last Admin: 01/02/17 11:16 Dose: 325 mg Heparin Sodium (Porcine) (Heparin -) 5,000 unit SQ BID JESSICA Last Admin: 01/02/17 21:54 Dose: 5,000 unit Sodium Chloride (Normal Saline -) 1,000 mls @ 100 mls/hr IV ASDIR [facility] Last Admin: 01/03/17 05:45 Dose: Not Given Sodium Chloride (1/2 Normal Saline) 1,000 mls @ 100 mls/hr IV ASDIR [facility] Last Admin: 01/03/17 07:27 Dose: 100 mls/hr Meropenem 1 gm/ Dextrose 100 mls @ 100 mls/hr IVPB Q12H JESSICA PRN Reason: Protocol Last Admin: 01/03/17 01:12 Dose: 100 mls/hr Insulin Aspart (Novolog Vial) 16 units SQ ACHS [facility] Last Admin: 01/03/17 06:03 Dose: Not Given Insulin Detemir (Levemir Vial) 12 units SQ HS [facility] Last Admin: 01/02/17 21:56 Dose: 12 units Isosorbide Dinitrate (Isordil -) 10 mg PO DAILY [facility] Last Admin: 01/02/17 13:54 Dose: 10 mg Metoprolol Succinate (Toprol Xl -) 100 mg PO DAILY [facility] Last Admin: 01/02/17 10:05 Dose: Not Given Mycophenolate Mofetil (Cellcept -) 500 mg PO DAILY [facility] Last Admin: 01/02/17 11:16 Dose: 500 mg Prednisone (Deltasone -) 5 mg PO DAILY [facility] Last Admin: 01/02/17 11:16 Dose: 5 mg Tacrolimus (Prograf (Non-Formulary)) 1 mg PO DAILY [facility] Last Admin: 01/02/17 11:17 Dose: 1 mg - Objective Vital Signs: Vital Signs Temperature 98.3 F 01/03/17 05:33 Pulse Rate 84 01/03/17 05:33 Respiratory Rate 18 01/03/17 05:33 Blood Pressure 136/65 01/03/17 05:33 O2 Sat by Pulse Oximetry (%) 96 01/02/17 20:42 Constitutional: Yes: Well Nourished, No Distress Eyes: Yes: WNL, Conjunctiva Clear HENT: Yes: WNL, Atraumatic Neck: Yes: WNL, Supple Cardiovascular: Yes: Regular Rate and Rhythm, Murmur, S1, S2, Other (Grade 2 sysytolic murmur) Respiratory: Yes: WNL, Regular, CTA Bilaterally Gastrointestinal: Yes: WNL, Normal Bowel Sounds, Soft. No: Tenderness, Tenderness, Rebound Edema: No Labs: CBC, BMP 01/03/17 06:00 INR, PTT INR 1.51 (0.82-1.09) H D 01/02/17 14:45 Fibrinogen 329.0 mg/dL (238-498) 01/02/17 14:45 Problem List - Problems (1) IDDM (insulin dependent diabetes mellitus) Code(s): E11.9 - TYPE 2 DIABETES MELLITUS WITHOUT COMPLICATIONS Z79.4 - HALFWAY (CURRENT) USE OF INSULIN (2) Sepsis Code(s): A41.9 - SEPSIS, UNSPECIFIED ORGANISM Qualifiers: Sepsis type: sepsis due to unspecified organism Qualified Code(s): A41.9 - Sepsis, unspecified organism (3) Gram-negative bacteremia Code(s): R78.81 - BACTEREMIA Assessment/Plan Microbiology 01/01/17 22:10 Blood - Peripheral Venous Blood Culture - Preliminary Lactose Fermenting Neg Bacilli 01/01/17 22:00 Blood - Peripheral Venous Blood Culture - Preliminary NO GROWTH OBTAINED AFTER 24 HOURS, INCUBATION TO CONTINUE FOR 4 DAYS. Laboratory Tests 01/01/17 01/02/17 01/02/17 22:00 01:40 07:35 WBC Hgb Hct Plt Count Anion Gap BUN 35 H Creatinine 2.2 H Creat Clearance w eGFR 29.83 Lactic Acid 1.8 Total Bilirubin 1.1 H D AST 17 Albumin 2.8 L D Ur Leukocyte Esterase 2+ H Urine RBC 6 Urine WBC 333 01/03/17 01/03/17 06:00 06:00 WBC 10.9 H D Hgb 10.1 L Hct 30.5 L Plt Count 41 L D Anion Gap Pending BUN Pending Creatinine Pending Creat Clearance w eGFR Lactic Acid Total Bilirubin AST Albumin Ur Leukocyte Esterase Urine RBC Urine WBC Assessment Fever resolved Gram negative bacteremia UIT source IDDM S/P Renal transplant September 2016 Plan Continue Meropenem pending final sensitivities Discussed with Renal this morning Transfer being considered Renetta BRAMBILA
[2017-01-03] MEDS: HEPARIN NA (PORCINE) 5,000 UNITS/ML 1ML VIAL SQ SCH (09:34)
[2017-01-03] MEDS: ASPIRIN 81 MG CHEWABLE TABLETS PO SCH (09:34)
[2017-01-03] MEDS: FERROUS SO4 325 MG TABLET (FP) PO SCH (09:34)
[2017-01-03] MEDS: METOPROLOL SUCCINATE 100 MG TAB.SR.24H (FP) PO SCH (09:34)
[2017-01-03] MEDS: amLODIPine BESYLATE 5 MG TABLET (FP) PO SCH (09:34)
[2017-01-03] MEDS: predniSONE 5 MG TABLET (UD) PO SCH (09:34)
[2017-01-03] MEDS: ATOVAQUONE 750 MG/5 ML (UNIT-DOSE PACKAGING) PO SCH (09:35)
[2017-01-03] MEDS: ISOSORBIDE DINITRATE 5 MG TABLET PO SCH (09:36)
[2017-01-03] MEDS: ACYCLOVIR 400 MG TABLET PO SCH (09:37)
[2017-01-03] MEDS: MYCOPHENOLATE MOFETIL 250 MG CAPSULE PO SCH (09:37)
[2017-01-03] MEDS: FENOFIBRIC ACID 45 MG CAP PO SCH (09:37)
[2017-01-03] MEDS: TACROLIMUS ANHYDROUS 1 MG CAPSULE (NF) PO SCH (09:38)
[2017-01-03] MEDS ORDERED: CALCIUM PO SCH (10:00)
[2017-01-03] MEDS ORDERED: CALCIUM 500MG/VIT-D 200 UNITS COMBO TABLET (FP) PO SCH (10:00)
[2017-01-03] MEDS ORDERED: VIT D PO SCH (10:00)
[2017-01-03 10:30] LABS: PLATELET ESTIMATE DECREASED (NORMAL)
--- NOTE | 2017-01-03 10:36 | PN ---
Physical Exam: SUBJECTIVE: Patient seen and examined at bedside this AM. Afebrile overnight with significant improvement in chills/discomfort. States he almost feels back to normal. Tolerated food this morning well. Denies any chest pain, SOB, or abdominal pain. Understands and agrees with current plan to transfer to [facility] for further treatment. OBJECTIVE: Vital Signs Period Temp Pulse Resp BP Sys/Martin Pulse Ox Last 24 Hr 98.3 F-99.6 F 74-88 18-20 94-137/48-72 96 GENERAL: The patient is awake, alert, and fully oriented, in no acute distress. LUNGS: Breath sounds equal, clear to auscultation bilaterally, no wheezes, no crackles HEART: Regular rate and rhythm, S1, S2 without murmur, rub or gallop. ABDOMEN: Soft, nontender, nondistended, normoactive bowel sounds. NO TENDERNESS OVER RENAL ALLOGRAFT EXTREMITIES: 2+ pulses, warm, well-perfused, no edema. NEUROLOGICAL: Cranial nerves II through XII grossly intact. Normal speech, gait not observed. PSYCH: Normal mood, normal affect. SKIN: Warm, dry, normal turgor, no rashes or lesions noted Laboratory Results - last 24 hr 01/02/17 01/02/17 01/02/17 07:35 12:01 14:45 WBC 6.2 RBC 3.73 L Hgb 10.9 L Hct 33.4 L MCV 89.4 MCHC 32.7 RDW 15.8 Plt Count 59 L D MPV 11.0 Neutrophils % 84.0 H Lymphocytes % 2.0 L D Monocytes % 3.0 L Eosinophils % 1.0 Basophils % Band Neutrophils 9.0 D Metamyelocytes 1 Myelocytes Differential Comment Platelet Estimate Decreased Platelet Comment No clumping noted Hypochromic-Microcytic Few INR 1.51 H D Fibrinogen 329.0 Sodium Potassium Chloride Carbon Dioxide Anion Gap BUN Creatinine POC Glucometer 104 Random Glucose Calcium 01/02/17 01/02/17 01/03/17 17:04 21:53 05:30 WBC RBC Hgb Hct MCV MCHC RDW Plt Count MPV Neutrophils % Lymphocytes % Monocytes % Eosinophils % Basophils % Band Neutrophils Metamyelocytes Myelocytes Differential Comment Platelet Estimate Platelet Comment Hypochromic-Microcytic INR Fibrinogen Sodium Potassium Chloride Carbon Dioxide Anion Gap BUN Creatinine POC Glucometer 128 126 138 Random Glucose Calcium 01/03/17 01/03/17 06:00 06:00 WBC 10.9 H D RBC 3.41 L Hgb 10.1 L Hct 30.5 L MCV 89.5 MCHC 33.1 RDW 16.7 H Plt Count 41 L D MPV 11.7 H Neutrophils % 75.0 Lymphocytes % 4.0 L D Monocytes % 2.0 L Eosinophils % 0.0 D Basophils % 0.0 Band Neutrophils 18.0 H D Metamyelocytes Myelocytes 1 Differential Comment Manual diff done Platelet Estimate Decreased Platelet Comment No clumping noted Hypochromic-Microcytic INR Fibrinogen Sodium 137 Potassium 4.6 Chloride 107 Carbon Dioxide 19 L Anion Gap 11 BUN 44 H D Creatinine 2.6 H POC Glucometer Random Glucose 118 H Calcium 7.1 L Active Medications Generic Name Dose Route Start Last Admin Trade Name Freq PRN Reason Stop Dose Admin Acetaminophen 650 mg 01/02/17 05:36 01/02/17 10:22 Tylenol - PO 650 mg Q6H PRN Administration FEVER OR PAIN Acyclovir 400 mg 01/02/17 10:00 01/03/17 09:37 Zovirax - PO 400 mg BID JESSICA Administration Amlodipine Besylate 5 mg 01/02/17 10:00 01/03/17 09:34 Norvasc - PO 5 mg DAILY JESSICA Administration Aspirin 81 mg 01/02/17 10:00 01/03/17 09:34 Asa - PO 81 mg DAILY JESSICA Administration Atorvastatin Calcium 40 mg 01/02/17 22:00 01/02/17 21:56 Lipitor - PO 40 mg HS JESSICA Administration Atovaquone 750 mg 01/02/17 10:00 01/03/17 09:35 Mepron - PO 750 mg BID JESSICA Administration Calcium Carbonate/Cholecalciferol 1 tab 01/03/17 10:00 01/03/17 09:34 Os-Kelvin 500+D - PO 1 tab DAILY JESSICA Administration Fenofibric Acid 45 mg 01/02/17 10:00 01/03/17 09:37 Trilipix - PO 45 mg DAILY JESSICA Administration Ferrous Sulfate 325 mg 01/02/17 10:00 01/03/17 09:34 Feosol - PO 325 mg DAILY JESSICA Administration Heparin Sodium (Porcine) 5,000 unit 01/02/17 10:00 01/03/17 09:34 Heparin - SQ 5,000 unit BID JESSICA Administration Sodium Chloride 1,000 mls @ 100 mls/hr 01/02/17 05:45 01/03/17 05:45 Normal Saline - IV Not Given ASDIR JESSICA Sodium Chloride 1,000 mls @ 100 mls/hr 01/02/17 13:30 01/03/17 07:27 1/2 Normal Saline IV 100 mls/hr ASDIR JESSICA Administration Meropenem 1 gm/ Dextrose 100 mls @ 100 mls/hr 01/02/17 14:00 01/03/17 01:12 IVPB 100 mls/hr Q12H JESSICA Administration Protocol Insulin Aspart 16 units 01/02/17 16:30 01/03/17 06:03 Novolog Vial SQ Not Given ACHS JESSICA Insulin Detemir 12 units 01/02/17 22:00 01/02/17 21:56 Levemir Vial SQ 12 units HS JESSICA Administration Isosorbide Dinitrate 10 mg 01/02/17 10:00 01/03/17 09:36 Isordil - PO 10 mg DAILY JESSICA Administration Metoprolol Succinate 100 mg 01/02/17 10:00 01/03/17 09:34 Toprol Xl - PO 100 mg DAILY JESSICA Administration Mycophenolate Mofetil 500 mg 01/02/17 10:00 01/03/17 09:37 Cellcept - PO 500 mg DAILY JESSICA Administration Prednisone 5 mg 01/02/17 10:00 01/03/17 09:34 Deltasone - PO 5 mg DAILY JESSICA Administration Tacrolimus 1 mg 01/02/17 10:00 01/03/17 09:38 Prograf (Non-Formulary) PO 1 mg DAILY JESSICA Administration ASSESSMENT/PLAN: 71 y/o M w/PMH of HTN, IDDM, s/p renal transplant (09/2016), CHF, A-fib (off A/C , s/p ablation), CAD w/2 stents, Anemia presents to ER with shaking and fevers. Found to have UTI as per UA. #Acute Complicated UTI w/ Pyelonephritis, in setting of renal transplant in September 2016 & currently on immune suppression therapy -as per discussion with Dr Esqueda at [facility], patient is to be transferred pending bed assignment -continue Meropenem, as per ID -IV Hydration 1/2NS @100cc/hr -Blood Cx & Urine Cx (+) for gram negative bacteria -ID Consult appreciated -Renal consultation requested -Renal US reviewed #Acute Thrombocytopenia, likely reactive & without signs of acute bleed -41k today (59k yesterday) -continue to monitor & trend -no need for platelet infusion at present #Hx of Renal transplant (September 2016) -continue regimen: Acyclovir 400 mg po bid, mycophenolate mofetil 500 mg po qd, tacrolimus 1 tab po qd, prednisone 5 mg po qd, atovaquone 750 mg po bid #CAD/HTN Hx -continue home meds: ASA 81 mg po qd, fenofibric acid 45 mg po qd, atorvastatin 40 mg po qhs, toprol xl 100 mg po qd, amlodipine 5 mg po qd, Isosorbide dinitrate 10mg PO daily -still holding Losartan due to renal disease #DM -Levemir 12u HS -Novolog 16 units SQ ACHS -Continue BGM Prophyalxis/FEN -Heparin -no PPI indicated -IVF 1/2NS@100cc/hr -will monitor electrolytes -Diabetic/Renal Diet, Os-Call, Feosol Dispo: awaiting transfer to [facility] Visit type - Emergency Visit Emergency Visit: Yes ED Registration Date: 01/02/17 Care time: The patient presented to the Emergency Department on the above date and was hospitalized for further evaluation of their emergent condition. - New Patient This patient is new to me today: Yes Date on this admission: 01/03/17 - Critical Care Critical Care patient: No
--- NOTE | 2017-01-03 10:41 | CONSULT ---
Consult Consult Specialty:: Nephrology ( Feliciano/ Kunal) Reason for Consultation:: Acute Kidney failure in a patient with ESRD, S/P Renal transolant. - History of Present Illness Chief Complaint: 71 y/o male admitted with fever, shaking chills, urinary frequency and feeling very "sick". History of Present Illness: Many thanks for this consult. 71 y/o male admitted with fever, shaking chills, and urinary frequency. The patient had a recent cadaver renal transplant @ [facility]. The baseline Serum Creatinine is unknown. His hx is significant for DM2, HTN, CAD, s/p stents x 2, AFib, s/p endomyocardial ablation, Chronic anemia - History Source History Provided By: Patient, Medical Record - Past Medical History Cardio/Vascular: Yes: AFIB, CAD, CHF (s/p aflutter and AF ablations), HTN, Hyperlipdemia, Other (recently had cardiac cath @ [facility]) Gastrointestinal: Yes: Other (s/p partial colon resection for pre-malignant lesion done several months ago when he was found to have internal bleeding) Renal/: Yes: Renal Failure (ESRD on HD), Hemodialysis Endocrine: Yes: Diabetes Mellitus Additional Medical History: s/p amputation of Rt 1st toe this year - Past Surgical History Past Surgical History: Yes: Amputation (R great toe amputated 2012), AV Fistula/ Graft, Bariatric Surgery, Cataract Removal, Colectomy (partial colon resection for polyps) - Alcohol/Substance Use Hx Alcohol Use: No History of Substance Use: reports: None - Smoking History Smoking history: Never smoked Have you smoked in the past 12 months: No Aproximately how many cigarettes per day: 0 If you are a former smoker, when did you quit?: 1996 - Social History Usual Living Arrangement: With Spouse ADL: Independent History of Recent Travel: No Home Medications - Allergies Allergies/Adverse Reactions: Allergies Allergy/AdvReac Type Severity Reaction Status Date / Time No Known Drug Allergies Allergy Verified 01/01/17 21:21 - Home Medications Home Medications: Ambulatory Orders Acyclovir [Zovirax -] 400 mg PO BID 01/01/17 Amlodipine Besylate [Norvasc -] 5 mg PO BID 01/01/17 Aspirin [ASA -] 81 mg PO DAILY 01/01/17 Atorvastatin Ca [Lipitor] 40 mg PO HS 01/01/17 Atovaquone [Mepron -] 750 mg PO DAILY 01/01/17 Calcium 600 + Vit D Softgel 600 mg PO DAILY 01/01/17 Cholecalciferol (Vitamin D3) [Vitamin D3 -] 1,000 unit PO DAILY 01/01/17 Fenofibric Acid [Trilipix -] 45 mg PO DAILY 01/01/17 Ferrous Sulfate 325 mg PO BID 01/01/17 Isosorbide Dinitrate [Isordil -] 10 mg PO BID 01/01/17 Losartan Potassium 25 mg PO DAILY 01/01/17 Metoprolol Succinate [Toprol Xl] 100 mg PO BID 01/01/17 Mycophenolate Mofetil [Cellcept] 500 mg PO DAILY 01/01/17 Prednisone 5 mg PO DAILY 01/01/17 Tacrolimus [Prograf] 1 mg PO BID 01/01/17 Insulin (Levemir) [Levemir Flexpen -] 12 units SQ HS 01/02/17 Insulin Lispro [Humalog Kwikpen U-100] 16 units SCJ ACHS 01/02/17 Family Disease History - Family Disease History Family Disease History: Diabetes: Father, Mother, Sister (3 sisters with diabetes) Review of Systems - Review of Systems Constitutional: reports: Chills, Fever, Loss of Appetite, Malaise, Night Sweats , Weakness Eyes: reports: Blurred Vision Cardiovascular: denies: Chest Pain, Palpitations, Shortness of Breath Gastrointestinal: reports: Bloating, Vomiting. denies: Abdominal Pain Genitourinary: reports: Frequency. denies: Burning Neurological: denies: Change in LOC, Change in Speech, Confusion Physical Exam Vital Signs: Vital Signs Temperature 99.6 F 01/03/17 09:00 Pulse Rate 88 01/03/17 09:00 Respiratory Rate 01/03/17 09:00 Blood Pressure 137/72 01/03/17 09:00 O2 Sat by Pulse Oximetry (%) 96 01/02/17 20:42 Constitutional: Yes: Calm Eyes: Yes: Conjunctiva Clear HENT: Yes: Normocephalic Cardiovascular: Yes: Pulse Irregular, S1, S2 Respiratory: Yes: CTA Bilaterally, Poor Air Entry Gastrointestinal: Yes: Normal Bowel Sounds, Soft, Distention (gaseous) Renal/: Yes: Other. No: Bladder Distention, CVA Tenderness - Left, CVA Tenderness - Right (No tenderness over the renal allograft.) Edema: No Labs: CBC, BMP 01/03/17 06:00 01/03/17 06:00 Problem List - Problems (1) Gram-negative bacteremia Code(s): R78.81 - BACTEREMIA (2) H/O heart artery stent Code(s): Z95.5 - PRESENCE OF CORONARY ANGIOPLASTY IMPLANT AND GRAFT (3) Hypertension Code(s): I10 - ESSENTIAL (PRIMARY) HYPERTENSION Qualifiers: Hypertension type: essential hypertension Qualified Code(s): I10 - Essential (primary) hypertension (4) IDDM (insulin dependent diabetes mellitus) Code(s): E11.9 - TYPE 2 DIABETES MELLITUS WITHOUT COMPLICATIONS Z79.4 - JOB TRAINER (CURRENT) USE OF INSULIN (5) Kidney transplant recipient Code(s): Z94.0 - KIDNEY TRANSPLANT STATUS (6) Sepsis Code(s): A41.9 - SEPSIS, UNSPECIFIED ORGANISM Qualifiers: Sepsis type: sepsis due to unspecified organism Qualified Code(s): A41.9 - Sepsis, unspecified organism (7) Anemia in ESRD (end-stage renal disease) Code(s): N18.6 - END STAGE RENAL DISEASE D63.1 - ANEMIA IN CHRONIC KIDNEY DISEASE (8) Atrial fibrillation Code(s): I48.91 - UNSPECIFIED ATRIAL FIBRILLATION (9) Acute kidney failure Code(s): N17.9 - ACUTE KIDNEY FAILURE, UNSPECIFIED Assessment/Plan 71 y/o male with ESRD, s/p Renal Transplant and multiple co-morbid conditions admitted with what appears to be Acute urosepsis. On IV antibiotics. The fever seems to be defervescing. The UTI in the setting of renal transplant and Immunosuppression carries special significance, in that one needs to look for opportunistic infections as well. Acute Kidney Injury with progressively worsening Azotemia. Most likely related to the Acute Renal Hemodynamic changes related to the sepsis. BP seems to be in acceptable range. The patient is on Immunosuppressive therapy and need to monitor the Tacrolimus level very closely. Discussed with Dr. Briseno of Pathology, and will order Tacrolimus level. The turn around time is many days, and this might affect the quality of care. Nevertheless, will oredr the drug level. The patient waiting for transfer to [facility]. Will monitor the Renal functions closely. Tanika Wiggins MD
--- NOTE | 2017-01-03 12:07 | MSN ---
Progress Note (short form) - Note Progress Note: Subjective: Patient is a 71 year old man with a past medical history of HTN, IDDM, renal transplant (09/2016), CHF, A-fib (ablated), CAD with 2 stents, and anemia. Patient presented to the ER with chills, fever and shaking. Patient was having increased frequency of urination and urinary discomfort. Patient was seen today by me at the bedside. The patient stated that he felt much better today in comparison to previous days. The patient patient denies any pain, fever, chills or increased urinary frequency. The complains only of new onset diarrhea that started last night but has subsided. The patient has been eating and drinking without issue and has been urinating and defecating regularly. Paitent also denies any chest pain, SOB, headache, nausea or vomiting. Vital Signs Period Temp Pulse Resp BP Sys/Martin Pulse Ox Last 24 Hr 98.3 F-99.6 F 74-88 18-20 94-137/48-72 96-96 Exam: General- alert and oriented in no acute distress. Heart- regular rate and rhythm no murmurs, rubs, or gallops. Lungs- clear to auscultation bilaterally in all lung [place], no wheezes, rales or rhonchi. Extremities- 4/5 muscle strength and 2/4 pulses with intact sensation in all extremities. There was no swelling or peripheral edema in the lower extremities. AV fistula patent with palpable thrill in the left upper extremity. Abdomen: No guarding or distention. Incision noted on the right lower quadrant from renal transplant surgery. Bruising noted in the middle right abdomen with no associated pain. Laboratory Results - last 24 hr 01/02/17 01/02/17 01/02/17 01:40 12:01 14:45 WBC RBC Hgb Hct MCV MCHC RDW Plt Count MPV Neutrophils % Lymphocytes % Monocytes % Eosinophils % Basophils % Band Neutrophils Myelocytes Differential Comment Platelet Estimate Platelet Comment INR 1.51 H D Fibrinogen 329.0 Sodium Potassium Chloride Carbon Dioxide Anion Gap BUN Creatinine POC Glucometer 104 Random Glucose Calcium Urine Color Ltyellow Urine Appearance Cloudy Urine pH 5.0 D Ur Specific [place] 1.010 Urine Protein 2+ H Urine Glucose (UA) Negative Urine Ketones Negative Urine Blood 3+ H Urine Nitrite Positive Urine Bilirubin Negative Urine Urobilinogen Negative Ur Leukocyte Esterase 2+ H Urine RBC 6 Urine WBC 333 Ur Epithelial Cells Rare Urine Bacteria Many 01/02/17 01/02/17 01/03/17 17:04 21:53 05:30 WBC RBC Hgb Hct MCV MCHC RDW Plt Count MPV Neutrophils % Lymphocytes % Monocytes % Eosinophils % Basophils % Band Neutrophils Myelocytes Differential Comment Platelet Estimate Platelet Comment INR Fibrinogen Sodium Potassium Chloride Carbon Dioxide Anion Gap BUN Creatinine POC Glucometer 128 126 138 Random Glucose Calcium Urine Color Urine Appearance Urine pH Ur Specific [place] Urine Protein Urine Glucose (UA) Urine Ketones Urine Blood Urine Nitrite Urine Bilirubin Urine Urobilinogen Ur Leukocyte Esterase Urine RBC Urine WBC Ur Epithelial Cells Urine Bacteria 01/03/17 01/03/17 01/03/17 06:00 06:00 11:19 WBC 10.9 H D RBC 3.41 L Hgb 10.1 L Hct 30.5 L MCV 89.5 MCHC 33.1 RDW 16.7 H Plt Count 41 L D MPV 11.7 H Neutrophils % 75.0 Lymphocytes % 4.0 L D Monocytes % 2.0 L Eosinophils % 0.0 D Basophils % 0.0 Band Neutrophils 18.0 H D Myelocytes 1 Differential Comment Manual diff done Platelet Estimate Decreased Platelet Comment No clumping noted INR Fibrinogen Sodium 137 Potassium 4.6 Chloride 107 Carbon Dioxide 19 L Anion Gap 11 BUN 44 H D Creatinine 2.6 H POC Glucometer 142 Random Glucose 118 H Calcium 7.1 L Urine Color Urine Appearance Urine pH Ur Specific [place] Urine Protein Urine Glucose (UA) Urine Ketones Urine Blood Urine Nitrite Urine Bilirubin Urine Urobilinogen Ur Leukocyte Esterase Urine RBC Urine WBC Ur Epithelial Cells Urine Bacteria Current Medications Generic Name Dose Route Start Last Admin Trade Name Anthony PRN Reason Stop Dose Admin Acetaminophen 650 mg 01/02/17 05:36 01/02/17 10:22 Tylenol - PO 650 mg Q6H PRN Administration FEVER OR PAIN Acyclovir 400 mg 01/02/17 10:00 01/03/17 09:37 Zovirax - PO 400 mg BID JESSICA Administration Amlodipine Besylate 5 mg 01/02/17 10:00 01/03/17 09:34 Norvasc - PO 5 mg DAILY JESSICA Administration Aspirin 81 mg 01/02/17 10:00 01/03/17 09:34 Asa - PO 81 mg DAILY JESSICA Administration Atorvastatin Calcium 40 mg 01/02/17 22:00 01/02/17 21:56 Lipitor - PO 40 mg HS JESSICA Administration Atovaquone 750 mg 01/02/17 10:00 01/03/17 09:35 Mepron - PO 750 mg BID JESSICA Administration Calcium Carbonate/Cholecalciferol 1 tab 01/03/17 10:00 01/03/17 09:34 Os-Kelvin 500+D - PO 1 tab DAILY JESSICA Administration Fenofibric Acid 45 mg 01/02/17 10:00 01/03/17 09:37 Trilipix - PO 45 mg DAILY JESSICA Administration Ferrous Sulfate 325 mg 01/02/17 10:00 01/03/17 09:34 Feosol - PO 325 mg DAILY JESSICA Administration Heparin Sodium (Porcine) 5,000 unit 01/02/17 10:00 01/03/17 09:34 Heparin - SQ 5,000 unit BID JESSICA Administration Sodium Chloride 1,000 mls @ 100 mls/hr 01/02/17 05:45 01/03/17 05:45 Normal Saline - IV Not Given ASDIR JESSICA Sodium Chloride 1,000 mls @ 100 mls/hr 01/02/17 13:30 01/03/17 07:27 1/2 Normal Saline IV 100 mls/hr ASDIR JESSICA Administration Meropenem 1 gm/ Dextrose 100 mls @ 100 mls/hr 01/02/17 14:00 01/03/17 01:12 IVPB 100 mls/hr Q12H JESSICA Administration Protocol Insulin Aspart 16 units 01/02/17 16:30 01/03/17 12:03 Novolog Vial SQ Not Given ACHS JESSICA Insulin Detemir 12 units 01/02/17 22:00 01/02/17 21:56 Levemir Vial SQ 12 units HS JESSICA Administration Isosorbide Dinitrate 10 mg 01/02/17 10:00 01/03/17 09:36 Isordil - PO 10 mg DAILY JESSICA Administration Metoprolol Succinate 100 mg 01/02/17 10:00 01/03/17 09:34 Toprol Xl - PO 100 mg DAILY JESSICA Administration Mycophenolate Mofetil 500 mg 01/02/17 10:00 01/03/17 09:37 Cellcept - PO 500 mg DAILY JESSICA Administration Prednisone 5 mg 01/02/17 10:00 01/03/17 09:34 Deltasone - PO 5 mg DAILY JESSICA Administration Tacrolimus 1 mg 01/02/17 10:00 01/03/17 09:38 Prograf (Non-Formulary) PO 1 mg DAILY JESSICA Administration Imaging: chest x-ray (01/01/17)- Prominent mediastinum. Persistent right base infiltrate. "CT scant may help." ECG (01/01/17)- no acute ECG changes Renal ultrasound (01/02/17)- No sign of perirenal abscess. Mild nonspecific dilation of the collecting ducts. Assessment and Plan: 71 year old man with past medical history of HTN, IDDM, renal transplant (09/2016 ), CHF, A-fib (status post ablation) CAD with 2 stents, and anemia who presented to the ER with shaking and fevers. Found to have UTI on U/A. 1) Complicated UTI - urine culture positive for lactose fermenting gram negative bacilus - blood culture also positive for lactose fermenting gram negative bacilus - continue meropenem 1gm 100mls @100mls/hr IVPB q 12hrs (Day 2) - continue 1/2 normal saline 1000 mls @ 100 mls/hr ASDIR - continue acetaminophen 650 mg PO q6hrs PRN for fever 2) Post renal transplant - renal transplant in september of 2016 - continue to monitor kidney function - patent AV fistula in the right upper extremity - creatinine 2.6, BUN 44 - Transplant doctor Dr. Dominique Iyer at [facility] consulted - continue Mycophenolate 500mg PO daily - continue tactrolimus 1 mg PO daily - Prednisone 5 mg PO daily - acyclovir 400mg PO BID 3) CAD - Continue ASA 81 mg PO qd - continue fenofibric acid 45 mg PO qd - continue atorvastatin 40 mg po qhs - continue isosorbide dinitrate 10mg PO daily 4) HTN - continue with metoprolol 100mg PO daily - continue with amlodipine 5mg PO daily - hold losartan until kidney function creatinine is with 1.7-1.8 5) Anemia - current hbg decreased from 10.9 to 10.1 - continue to monitor hbg - continue ferrous sulfate 325 PO daily 6) IDDM - current glucose of 142 - continue novolog 16 units SQ - continue levamir 12 units SQ 7) DVT prophylaxis - continue hepatin 5000 units SQ BID F/E/N - 1/2 NS 100mls @ 100mls/hr ASDIR - continue renal diet
--- NOTE | 2017-01-03 13:38 | PN ---
Teaching Attending Note Name of Resident: Gerry Medley ATTENDING PHYSICIAN STATEMENT I saw and evaluated the patient. I reviewed the resident's note and discussed the case with the resident. I agree with the resident's findings and plan as documented. SUBJECTIVE: feels much better, afebrile OBJECTIVE: Vital Signs Temperature 99.6 F 01/03/17 09:00 Pulse Rate 88 01/03/17 09:00 Respiratory Rate 20 01/03/17 09:00 Blood Pressure 137/72 01/03/17 09:00 O2 Sat by Pulse Oximetry (%) 96 01/03/17 09:00 GENERAL: + febrile Awake, alert, and fully oriented, appears comfortable, nontoxic HEAD: No signs of trauma, moist oral mucosa, moist oral mucosa EYES: PERRLA, EOMI, sclera anicteric, conjunctiva clear NECK: supple, no lymphadenopathy or masses LUNGS: Breath sounds equal, clear to auscultation bilaterally. No wheezes, and no crackles HEART: S1 and S2, RRR, no murmurs ABDOMEN: Soft, nontender, normoactive bowel sounds. No guarding, no rebound. No masses, mild b/l CVA tenderness NEUROLOGICAL: Normal speech, no focal deficits noted SKIN: scar on anterior right flank after transplant, appears well healed CBC, BMP 01/03/17 06:00 01/03/17 06:00 ASSESSMENT AND PLAN: 1. Sepsis secondary to pyelonephritis in an immuno suppressed patient - Gr - bacteremia. Hemodynamically stable now. - continue IVAB ( meroprnem ) and follow final cultures - IVF and monitor output 2. S/P Kidney transplant - renal function is worsening and he is at high risk of transplant rejection. US shows dilation of renal collecting system on the transplant 3. Trombocytopenia- likely 2/2 to sepsis, no bleeding now. - monitor platelets closely Transfer to [facility] for further management
[2017-01-03 14:19] VITALS: BP 143/68; PULSE 86; TEMP 99.4
--- NOTE | 2017-01-03 16:28 | DS ---
Physical Exam: SUBJECTIVE: Patient seen and examined at bedside this AM. Afebrile overnight with significant improvement in chills/discomfort. States he almost feels back to normal. Tolerated food this morning well. Denies any chest pain, SOB, or abdominal pain. Understands and agrees with current plan to transfer to [place] for further treatment. OBJECTIVE: Vital Signs Period Temp Pulse Resp BP Sys/Martin Pulse Ox Last 24 Hr 98.3 F-99.6 F 74-88 18-20 103-143/51-72 96-96 PHYSICAL EXAM GENERAL: The patient is awake, alert, and fully oriented, in no acute distress. LUNGS: Breath sounds equal, clear to auscultation bilaterally, no wheezes, no crackles HEART: Regular rate and rhythm, S1, S2 without murmur, rub or gallop. ABDOMEN: Soft, nontender, nondistended, normoactive bowel sounds. NO TENDERNESS OVER RENAL ALLOGRAFT EXTREMITIES: 2+ pulses, warm, well-perfused, no edema. NEUROLOGICAL: Cranial nerves II through XII grossly intact. Normal speech, gait not observed. PSYCH: Normal mood, normal affect. SKIN: Warm, dry, normal turgor, no rashes or lesions noted LABS Laboratory Last Values WBC 10.9 K/mm3 (4.0-10.0) H D 01/03/17 06:00 RBC 3.41 M/mm3 (4.00-5.60) L 01/03/17 06:00 Hgb 10.1 GM/dL (11.7-16.9) L 01/03/17 06:00 Hct 30.5 % (35.4-49) L 01/03/17 06:00 MCV 89.5 fl (80-96) 01/03/17 06:00 MCHC 33.1 g/dl (32.0-35.9) 01/03/17 06:00 RDW 16.7 % (11.9-15.9) H 01/03/17 06:00 Plt Count 41 K/MM3 (134-434) L D 01/03/17 06:00 MPV 11.7 fl (7.5-11.1) H 01/03/17 06:00 Neutrophils % 75.0 % (42.8-82.8) 01/03/17 06:00 Lymphocytes % 4.0 % (8-40) L D 01/03/17 06:00 Monocytes % 2.0 % (3.8-10.2) L 01/03/17 06:00 Eosinophils % 0.0 % (0-4.5) D 01/03/17 06:00 Basophils % 0.0 % (0-2.0) 01/03/17 06:00 Band Neutrophils 18.0 % (0-10) H D 01/03/17 06:00 Metamyelocytes 1 % (0-2) 01/02/17 07:35 Myelocytes 1 % (0-2) 01/03/17 06:00 Differential Comment Manual diff done 01/03/17 06:00 Platelet Estimate Decreased (NORMAL) 01/03/17 06:00 Platelet Comment No clumping noted 01/03/17 06:00 Hypochromic-Microcytic Few 01/02/17 07:35 Anisocytosis Occ 01/01/17 22:00 INR 1.51 (0.82-1.09) H D 01/02/17 14:45 PTT (Actin FS) 24.0 SECONDS (26.9-34.4) L D 01/01/17 22:00 Fibrinogen 329.0 mg/dL (238-498) 01/02/17 14:45 VBG pH 7.45 (7.32-7.42) H 01/01/17 22:19 POC VBG pCO2 31.1 mmHg (38-52) L 01/01/17 22:19 POC VBG pO2 99.8 mmHg (28-48) H 01/01/17 22:19 Mixed VBG HCO3 21.2 meq/L (19-25) 01/01/17 22:19 Sodium 137 mmol/L (136-145) 01/03/17 06:00 Potassium 4.6 mmol/L (3.5-5.1) 01/03/17 06:00 Chloride 107 mmol/L (98-107) 01/03/17 06:00 Carbon Dioxide 19 mmol/L (21-32) L 01/03/17 06:00 Anion Gap 11 (8-16) 01/03/17 06:00 BUN 44 mg/dL (7-18) H D 01/03/17 06:00 Creatinine 2.6 mg/dL (0.7-1.3) H 01/03/17 06:00 Creat Clearance w eGFR 29.83 (>60) 01/02/17 07:35 POC Glucometer 142 UNITS (()) 01/03/17 11:19 Random Glucose 118 mg/dL (74-106) H 01/03/17 06:00 Lactic Acid 1.8 mmol/L (0.4-2.0) 01/01/17 22:00 Calcium 7.1 mg/dL (8.5-10.1) L 01/03/17 06:00 Total Bilirubin 1.1 mg/dL (0.2-1.0) H D 01/02/17 07:35 AST 17 U/L (15-37) 01/02/17 07:35 ALT 18 U/L (12-78) 01/02/17 07:35 Alkaline Phosphatase 53 U/L (45-117) 01/02/17 07:35 Creatine Kinase 45 IU/L (39-308) 01/01/17 22:00 Troponin I < 0.02 ng/ml (0.00-0.05) 01/01/17 22:00 Total Protein 5.2 g/dl (6.4-8.2) L 01/02/17 07:35 Albumin 2.8 g/dl (3.4-5.0) L D 01/02/17 07:35 Urine Color Ltyellow 01/02/17 01:40 Urine Appearance Cloudy 01/02/17 01:40 Urine pH 5.0 (5.0-8.0) D 01/02/17 01:40 Ur Specific [place] 1.010 (1.005-1.025) 01/02/17 01:40 Urine Protein 2+ (NEGATIVE) H 01/02/17 01:40 Urine Glucose (UA) Negative (NEGATIVE) 01/02/17 01:40 Urine Ketones Negative (NEGATIVE) 01/02/17 01:40 Urine Blood 3+ (NEGATIVE) H 01/02/17 01:40 Urine Nitrite Positive (NEGATIVE) 01/02/17 01:40 Urine Bilirubin Negative (NEGATIVE) 01/02/17 01:40 Urine Urobilinogen Negative E.U./dl (0.2-1.0) 01/02/17 01:40 Ur Leukocyte Esterase 2+ (NEGATIVE) H 01/02/17 01:40 Urine RBC 6 /hpf (0-3) 01/02/17 01:40 Urine WBC 333 /hpf (3-5) 01/02/17 01:40 Ur Epithelial Cells Rare /hpf (FEW) 01/02/17 01:40 Urine Bacteria Many /hpf (NONE SEEN) 01/02/17 01:40 Blood Type A POSITIVE 01/01/17 22:00 Antibody Screen Negative 01/01/17 22:00 Current Medications Generic Name Dose Route Start Last Admin Trade Name Frefelicia PRN Reason Stop Dose Admin Acetaminophen 650 mg 01/02/17 05:36 01/02/17 10:22 Tylenol - PO 650 mg Q6H PRN Administration FEVER OR PAIN Acyclovir 400 mg 01/02/17 10:00 01/03/17 09:37 Zovirax - PO 400 mg BID JESSICA Administration Amlodipine Besylate 5 mg 01/02/17 10:00 01/03/17 09:34 Norvasc - PO 5 mg DAILY JESSICA Administration Aspirin 81 mg 01/02/17 10:00 01/03/17 09:34 Asa - PO 81 mg DAILY JESSICA Administration Atorvastatin Calcium 40 mg 01/02/17 22:00 01/02/17 21:56 Lipitor - PO 40 mg HS JESSICA Administration Atovaquone 750 mg 01/02/17 10:00 01/03/17 09:35 Mepron - PO 750 mg BID JESSICA Administration Calcium Carbonate/Cholecalciferol 1 tab 01/03/17 10:00 01/03/17 09:34 Os-Kelvin 500+D - PO 1 tab DAILY JESSICA Administration Fenofibric Acid 45 mg 01/02/17 10:00 01/03/17 09:37 Trilipix - PO 45 mg DAILY JESSICA Administration Ferrous Sulfate 325 mg 01/02/17 10:00 01/03/17 09:34 Feosol - PO 325 mg DAILY JESSICA Administration Heparin Sodium (Porcine) 5,000 unit 01/02/17 10:00 01/03/17 09:34 Heparin - SQ 5,000 unit BID JESSICA Administration Sodium Chloride 1,000 mls @ 100 mls/hr 01/02/17 05:45 01/03/17 05:45 Normal Saline - IV Not Given ASDIR JESSICA Sodium Chloride 1,000 mls @ 100 mls/hr 01/02/17 13:30 01/03/17 07:27 1/2 Normal Saline IV 100 mls/hr ASDIR JESSICA Administration Meropenem 1 gm/ Dextrose 100 mls @ 100 mls/hr 01/02/17 14:00 01/03/17 13:21 IVPB 100 mls/hr Q12H JESSICA Administration Protocol Insulin Aspart 16 units 01/02/17 16:30 01/03/17 12:03 Novolog Vial SQ Not Given ACHS JESSICA Insulin Detemir 12 units 01/02/17 22:00 01/02/17 21:56 Levemir Vial SQ 12 units HS JESSICA Administration Isosorbide Dinitrate 10 mg 01/02/17 10:00 01/03/17 09:36 Isordil - PO 10 mg DAILY JESSICA Administration Metoprolol Succinate 100 mg 01/02/17 10:00 01/03/17 09:34 Toprol Xl - PO 100 mg DAILY JESSICA Administration Mycophenolate Mofetil 500 mg 01/02/17 10:00 01/03/17 09:37 Cellcept - PO 500 mg DAILY JESSICA Administration Prednisone 5 mg 01/02/17 10:00 01/03/17 09:34 Deltasone - PO 5 mg DAILY JESSICA Administration Tacrolimus 1 mg 01/02/17 10:00 01/03/17 09:38 Prograf (Non-Formulary) PO 1 mg DAILY JESSICA Administration ULTRASOUND FINDINGS: A right pelvic renal transplant is seen demonstrating minimal to mild nonspecific dilatation of the collecting system. Direct comparison with previous ultrasound studies would be helpful if available from a different facility. Alternatively correlate with close follow- up sonography. There is no sonographic evidence of a perirenal or intrarenal abscess. Bilateral atrophy is seen of the [place] kidneys. HOSPITAL COURSE: Date of Admission:01/02/17 Date of Discharge: 01/03/17 71 y/o M w/PMH of HTN, IDDM, s/p renal transplant (09/2016), CHF, A-fib (off A/C , s/p ablation), CAD w/2 stents, Anemia presents to ER with shaking and fevers. Found to have UTI as per UA. #Acute Complicated UTI w/ Pyelonephritis, in setting of renal transplant in September 2016 & currently on immune suppression therapy -as per discussion with Dr Esqueda at [facility], [place], patient is to be transferred to [place] -Meropenem, day 2 -Blood Cx & Urine Cx (+) for gram negative bacteria #Acute Thrombocytopenia, likely reactive & without signs of acute bleed -41k today (59k yesterday) #Hx of Renal transplant (September 2016) -continue regimen: Acyclovir 400 mg po bid, mycophenolate mofetil 500 mg po qd, tacrolimus 1 tab po qd, prednisone 5 mg po qd, atovaquone 750 mg po bid #CAD/HTN Hx -continue home meds: ASA 81 mg po qd, fenofibric acid 45 mg po qd, atorvastatin 40 mg po qhs, toprol xl 100 mg po qd, amlodipine 5 mg po qd, Isosorbide dinitrate 10mg PO daily -holding Losartan due to renal disease #DM -Levemir 12u HS -Novolog 16 units SQ ACHS Prophyalxis -Heparin Minutes to complete discharge: 35 Discharge Summary Reason For Visit: KIDNEY TRANSPLANT RECIPIENT,OBSTRUCTION Current Active Problems Acquired immunocompromised state (Acute) Acute kidney failure (Acute) Gram-negative bacteremia (Acute) H/O heart artery stent (Acute) Hypertension (Acute) IDDM (insulin dependent diabetes mellitus) (Acute) Kidney transplant recipient (Acute) Sepsis (Acute) Condition: Improved - Instructions Disposition: TRANSFER ACUTE CARE/OTHER HOSP - Home Medications Comprehensive Discharge Medication List: Ambulatory Orders Acyclovir [Zovirax -] 400 mg PO BID 01/01/17 Amlodipine Besylate [Norvasc -] 5 mg PO BID 01/01/17 Aspirin [ASA -] 81 mg PO DAILY 01/01/17 Atorvastatin Ca [Lipitor] 40 mg PO HS 01/01/17 Atovaquone [Mepron -] 750 mg PO DAILY 01/01/17 Calcium 600 + Vit D Softgel 600 mg PO DAILY 01/01/17 Cholecalciferol (Vitamin D3) [Vitamin D3 -] 1,000 unit PO DAILY 01/01/17 Fenofibric Acid [Trilipix -] 45 mg PO DAILY 01/01/17 Ferrous Sulfate 325 mg PO BID 01/01/17 Isosorbide Dinitrate [Isordil -] 10 mg PO BID 01/01/17 Losartan Potassium 25 mg PO DAILY 01/01/17 Metoprolol Succinate [Toprol Xl] 100 mg PO BID 01/01/17 Mycophenolate Mofetil [Cellcept] 500 mg PO DAILY 01/01/17 Prednisone 5 mg PO DAILY 01/01/17 Tacrolimus [Prograf] 1 mg PO BID 01/01/17 Insulin (Levemir) [Levemir Flexpen -] 12 units SQ HS 01/02/17 Insulin Lispro [Humalog Kwikpen U-100] 16 units SCJ ACHS 01/02/17 This patient is new to me today: Yes Date on this admission: 01/03/17 Emergency Visit: Yes ED Registration Date: 01/02/17 Care time: The patient presented to the Emergency Department on the above date and was hospitalized for further evaluation of their emergent condition. Critical Care patient: No - Discharge Referral Referred to [facility] No
== END 2017-01-03 17:49 | disposition short-term general hospital (02) | DRG 872 ==
LOC: JER 21:14 → JERBED 01-02 04:07 → J6S 01-02 07:06
PROVIDERS: ADMIT Internal Medicine; ATTEND Internal Medicine
DX: A41.50 Gram-negative sepsis, unspecified (principal); N10 Acute pyelonephritis; Z94.0 Kidney transplant status; N17.9 Acute kidney failure, unspecified; I13.0 Hypertensive heart and chronic kidney disease with heart failure and stage 1 through stage 4 chronic kidney disease, or unspecified chronic kidney disease; D69.6 Thrombocytopenia, unspecified; I25.10 Atherosclerotic heart disease of native coronary artery without angina pectoris; Z98.61 Coronary angioplasty status; Z79.4 Long term (current) use of insulin; D63.1 Anemia in chronic kidney disease; E11.22 Type 2 diabetes mellitus with diabetic chronic kidney disease; N18.9 Chronic kidney disease, unspecified; I50.9 Heart failure, unspecified
CPT/HCPCS: 36415; 71010-TC; 76775-TC; 80048; 80053; 81003; 81015; 82550; 82803; 83605; 84484; 85025; 85362; 85384; 85610; 85730; 86850; 86900; 86901; 87040; 87086; 87186; 93005; 93010; 99285-25; J1644; J7517